=== PATIENT | female | born 1955 | race Caucasian/White ===

== ENCOUNTER 2024-12-20 10:58 | Day surgery (SDC) | payer MEDICARE, MEDICAID, SELFPAY ==
--- OUTSIDE RECORDS SUMMARY | 2024-12-18 12:35 | XMS_ITS | Clinical Summary ---
Author Organization [facility] Address [address] [place] [address] Care Team Providers Care Protective Officer Name Role Phone Unavailable Primary Care Provider Unavailabl e Social History Tobacco Use Types Packs/Day Years Used Date Smoking Tobacco: Never Assessed Comments Unknown Sex and Gender Information Value Date Recorded Sex Assigned at Not on file Legal Sex Female 11:56 PM EDT Gender Identity Not on file Sexual Orientation Not on file Plan of Treatment Health Maintenance Due Date Last Done Comments Hepatitis C Screening 1957 DTaP/Tdap/Td (1 - Tdap) 1975 Mammogram/Breast Imaging 1997 Pneumococcal 50+ years (1 of 1 - PCV) 2007 Zoster (Shingrix) (1 of 2) 2007 Bone Density 2022 COVID-19 Vaccine ( - 2023-2 5 season) 2024 Influenza (#1) 2024 RSV (1 - 1-dose 75+ series) 02/05/2032 HPV Vaccine Aged Out No longer eligi ble based on patient's age to complete this topic Hep A Aged Out No longer eligi ble based on patient's age to complete this topic Hep B Aged Out No longer eligi ble based on patient's age to complete this topic Hib Aged Out No longer eligi ble based on patient's age to complete this topic Meningococcal ACWY Aged Out No longer eligible based on patient's age to complete this topic Pap Smear Discontinued Zoster (Zostavax) Discontinued
--- OUTSIDE RECORDS SUMMARY | 2024-12-18 12:35 | XMS_ITS ---
Author Organization [facility] Address [address] [place] [address] Care Team Providers Care Nanoelectronics Engineer Name Role Phone Ric Teresa Primary Care Provider [phone] ALLERGIES Allergen (clinical drug ingredient) Drug/Non Drug Allergy documented on EMR Reaction Allergy Type Onset Date Status aspirin Aspirin Unknown Drug Allergy Active amoxicillin / clavulanate Augmentin Unknown Drug Allergy Active meperidine Demerol Unknown Drug Allergy Active doxycycline Doxycycline Hyclate Unknown Drug Allergy Active Fiorinal Unknown Drug Allergy Active guaiFENesin AC Unknown Drug Allergy Ac tive Levaquin Unknown Drug Allergy Active Sulfamethoxazole Unknown Drug Allergy Active trazodone Trazodone HCl Unknown Drug Allergy Act shelley sertraline Zoloft Unknown Drug Allergy Active REASON FOR REFERRAL Reason Consultation Diagnosis 1 Recurrent syncope (R 55) Referral Organization [facility] Referring Provider First Name Ric Referring Provider Last Name Brii Referring Provider Speciality Internal M edicine Referred Provider Specialty Neurology General Notes Romana Kwan 08/13/20 09:19:18 AM EDT > LMAM patient stated at checkout that she saw someone in the past, didn't know if she wanted to go to the same one or go somewhere else, Romana Kwan 08/14/2024 09:19:44 AM EDT > called and spoke with scheduling, they could not book for that diagnosis it told she kept getting an error that she should be refered to ENT first. She is sending over a message to the clinic to see if she can book and appt for that dx, she will call patient and let us know the status, Romana Kwan 08/23/2024 10:14:41 AM EDT > didnt hear back so I called and was told that there was no referral so I refaxed the information and verified the contact number for patient Clinical Notes [facility] neuro [facility]y [phone] f [phone] Referral Priority Routine Referral Appointment Date 04/08/2025 REASON FOR VISIT (IN OFFICE), Follow Up MEDICATIONS Medication SIG (Take, Route, Frequency, Duration) Notes Start Date End Date Status Glimepiride 2 MG TAKE 1 TABLET BY MAGUE TH EVERY DAY WITH BREAKFAST OR THE FIRST MAIN MEAL OF THE DAY Active rOPINIRole HCl 1 MG 1 tablet Orally Thre e times a day for 30 days Active Vancomycin HCl 1.25 GM as directed Intravenous Active metFORMIN HCl 500 MG 1 tablet with a bonnie l Orally Twice a day Active Metoprolol Succinate ER 25 MG 1 tablet Orally Once a day for 30 day(s) Active Varenicline Tartrate 1 MG 1 tablet after eating with a full glass of water Orally Twice a day for 30 days Active Vitamin D3 50 MCG (2000 UT) 1 capsule Or ally Once a day for 90 Days Active Levothyroxine Sodium 100 MCG 1 tablet in the morning on an empty stomach Orally Once a day Active Montelukast Sodium 10 MG TAKE 1 TABLET B Y MOUTH EVERY DAY Active Famotidine 40 MG TAKE 1 TABLET BY MAGUE TH EVERY DAY AT BEDTIME Active Cyclobenzaprine HCl 10 MG TAKE 1 TABLET BY MOUTH THREE TIMES DAILY NEEDED Active Pregabalin 150 MG TAKE 1 CAPSULE BY MO UTH TWICE DAILY Active Breztri Aerosphere 160-9-4.8 MCG/ACT INHALE 2 PUFFS BY MOUTH TWICE DAILY Active Rosuvastatin Calcium 10 MG TAKE 1 TABLET BY MOUTH EVERY DAY Active ProAir HFA 108 (90 Base) MCG/ACT 1 puff as needed Inhalation every 4 hrs Active Voltaren 1 % 5 g Transdermal Ever y 6 hours Active Fluticasone Propionate 50 MCG/ACT 1 spray in each nostril Nasally Once a day Active Mirtazapine 15 MG 1 tablet at bedtime Orally Once a day Active metFORMIN HCl 500 MG TAKE 1 AND 1/2 TABL ETS BY MOUTH TWICE DAILY WITH A MEAL for 90 Active Cymbalta 60 MG 1 capsule Orally Twi ce a day Active Montelukast Sodium 10 MG TAKE 1 TABLET B Y MOUTH EVERY DAY for 90 Active Famotidine 40 MG TAKE 1 TABLET BY MAGUE TH EVERY DAY AT BEDTIME for 90 Active rOPINIRole HCl 1 MG TAKE 1 TABLET BY MAGUE TH THREE TIMES DAILY for 90 Active Pregabalin 150 MG TAKE 1 CAPSULE BY MO UTH TWICE DAILY for 30 07/18/2024 Active Rosuvastatin Calcium 10 MG TAKE 1 TABLET BY MOUTH EVERY DAY for 90 Active Magnesium Oxide 400 MG 1 tablet as neede d Orally Twice a day for 90 Days Active Glimepiride 2 MG TAKE 1 TABLET BY MAGUE TH EVERY DAY WITH BREAKFAST OR THE FIRST MAIN MEAL OF THE DAY for 90 Active Levothyroxine Sodium 100 MCG TAKE 1 TABL ET BY MOUTH EVERY DAY IN THE MORNING ON AN EMPTY STOMACH for 90 Active Varenicline Tartrate 1 MG TAKE 1 TABLET BY MOUTH TWICE DAILY AFTER A MEAL WITH A FULL GLASS OF WATER for 90 Active Furosemide 20 MG TAKE 1 TABLET BY MAGUE TH TWICE DAILY for 90 Active Oxygen . 2 lpm . Daily Active Vitamin D3 50 MCG (1999 UT) TAKE 1 CAPSU LE BY MOUTH EVERY DAY for 90 Active Nystop 883260 UNIT/GM 1 application Exte rnally Twice a day for 30 days 06/11/2024 Active Sucralfate 1 GM/10ML SHAKE LIQUID AND TA KE 10 ML BY MOUTH FOUR TIMES DAILY ON AN EMPTY STOMACH Orally four times a day for 30 days Active Ondansetron 4 MG 1 tablet on the tong ue and allow to dissolve Orally every 8 hours as needed for 5 days 09/30/2022 Active OneTouch Verio w/Device as directed In V itro Once a day for 30 days 11/29/2021 Active OneTouch Delica Lancets 33G - as directed In Vitro Once a day for 30 days 11/29/2021 Active Venofer 20 MG/ML 50 mL Intravenous 1- 2 times per week 09/16/2021 Active OneTouch Verio - USE ONCE DAILY DIRECTED for 50 Active SOCIAL HISTORY Tobacco Use: Social History Observation Description Date Details (start date - stop date) Former Smoker NA - NA Sex Assigned At : Social History Observation Description Sex Assigned At Unknown Tobacco Use/Smoking Question Answer Notes Are you a former smoker How long has it been since you last smoked? 3-6 months Alcohol Screen Question Answer Notes Did you have a drink containing alcohol in the p ast year? No Points 0 Interpretation Negative VITAL SIGNS Height 68 in 08/12/2024 Weight 140.8 lbs 08/12/2024 BMI 21.41 kg/m2 08/12/2024 Blood pressure systolic 120 mm Hg 08/12/20 24 Blood pressure diastolic 80 mm Hg 024 Heart Rate 80 /min 08/12/2024 Encounters Encounter Location Date [facility] [address] [place] [address] 08/12/2024 Ric Teresa Essential tremor G25 .0 ; Recurrent syncope R55 ; Type 2 diabetes mellitus with diabetic neuropathy, unspecified whether residential insulin use E11.40 ; Neuropathy G62.9 ; Recurrent major depressive disorder, in full remission F33.42 ; Acquired hypothyroidism E03.9 ; Acute combined systolic and diastolic congestive heart failure I50.41 ; Chronic obstructive pulmonary disease, unspecified COPD type J44.9 ; Gastroesophageal reflux disease without esophagitis K21.9 ; Mixed hyperlipidemia E78.2 ; Hypomagnesemia E83.42 ; Osteoarthritis of spine with radiculopathy, lumbar region M47.26 ; Non-seasonal allergic rhinitis, unspecified trigger J30.89 ; Vitamin D deficiency E55.9 and Tobacco abuse Z72.0 ASSESSMENTS Encounter Date Diagnosis Assessment Notes Treatment Notes Treatment Clinical Notes 08/12/2024 Essential tremor (ICD-10 - G25.0) 08/12/2024 Recurrent syncope (ICD-10 - R55) 08/12/2024 Type 2 diabetes mellitus with diabetic neuropathy, unspecified whether vermin exterminator insulin use (ICD-10 - E11.40) 08/12/2024 Neuropathy (ICD-10 - G62.9) 08/12/2024 Recurrent major depressive disorder, in full remission (ICD-10 - F33.42) 08/12/2024 Acquired hypothyroidism (ICD-10 - E03.9) 08/12/2024 Acute combined systolic and diastolic congestive heart failure (ICD-10 - I50.41) 08/12/2024 Chronic obstructive pulmonary disease, unspecified COPD type (ICD-10 - J44.9) 08/12/2024 Gastroesophageal reflux disease without esophagitis (ICD-10 - K21.9) 08/12/2024 Mixed hyperlipidemia (ICD-10 - E78.2) 08/12/2024 Hypomagnesemia (ICD- 10 - E83.42) 08/12/2024 Osteoarthritis of spine with radiculopathy, lumbar region (ICD-10 - M47.26) 08/12/2024 Non-seasonal allergi c rhinitis, unspecified trigger (ICD-10 - J30.89) 08/12/2024 Vitamin D deficiency (ICD-10 - E55.9) 08/12/2024 Tobacco abuse (ICD-1 0 - Z72.0) 08/12/2024 Other This chart has been transcribed by a computerized dictation system. There are likely to be multiple horn player inaccuracies despite chart review. PLAN OF TREATMENT Medication Medication Name Sig Start Date Stop Date Notes Glimepiride 2 MG TAKE 1 TABLET BY MAGUE TH EVERY DAY WITH BREAKFAST OR THE FIRST MAIN MEAL OF THE DAY rOPINIRole HCl 1 MG 1 tablet Orally Thre e times a day for 30 days Vancomycin HCl 1.25 GM as directed Intravenous metFORMIN HCl 500 MG 1 tablet with a bonnie l Orally Twice a day Varenicline Tartrate 1 MG 1 tablet after eating with a full glass of water Orally Twice a day for 30 days Vitamin D3 50 MCG (2000 UT) 1 capsule Or ally Once a day for 90 Days Levothyroxine Sodium 100 MCG 1 tablet in the morning on an empty stomach Orally Once a day Montelukast Sodium 10 MG TAKE 1 TABLET B Y MOUTH EVERY DAY Famotidine 40 MG TAKE 1 TABLET BY MAGUE TH EVERY DAY AT BEDTIME Cyclobenzaprine HCl 10 MG TAKE 1 TABLET BY MOUTH THREE TIMES DAILY NEEDED Pregabalin 150 MG TAKE 1 CAPSULE BY MO UTH TWICE DAILY Breztri Aerosphere 160-9-4.8 MCG/ACT INHALE 2 PUFFS BY MOUTH TWICE DAILY Rosuvastatin Calcium 10 MG TAKE 1 TABLET BY MOUTH EVERY DAY ProAir HFA 108 (90 Base) MCG/ACT 1 puff as needed Inhalation every 4 hrs Voltaren 1 % 5 g Transdermal Ever y 6 hours Fluticasone Propionate 50 MCG/ACT 1 spray in each nostril Nasally Once a day Mirtazapine 15 MG 1 tablet at bedtime Orally Once a day Cymbalta 60 MG 1 capsule Orally Twi ce a day Magnesium Oxide 400 MG 1 tablet as neede d Orally Twice a day for 90 Days Treatment Notes Assessment Notes Other This chart has been transcribed by a computerized dictation system. There are likely to be multiple horn player inaccuracies despite chart review. Pending Test Test Name Order Date 08/12/2024 Hemoglobin [id number] 08/12/2024 [id number] 08/12/2024 Referrals Referral Date Details 04/08/2025 04/08/2025, Consulta mesha Next Appt Details Follow Up: 3 Months, Reason: Follow-up Provider Name:Ric castano, 02/11/2025 11:00:00 AM, [address] [place] [address], [phone], Consultation Request Notes Referral Date Referring Provider Referred Provider Not es 08/12/2024 Ric Teresa , Consultation
--- OUTSIDE RECORDS SUMMARY | 2024-12-18 12:35 | XMS_ITS ---
Author Organization [facility] Address [address] [place] [phone] Care Team Providers Care Toll Collector Name Role Phone Brii LAY, Ric Primary Care Provider Lance Almonte Jr Unavailable ALLERGIES Allergen (clinical drug ingredient) Drug/Non Drug Allergy documented on EMR Reaction Allergy Type Onset Date Status Levaquin Unknown Drug Allergy Active Fiorinal Unknown Drug Allergy Active meperidine Demerol Unknown Drug Allergy Active amoxicillin / clavulanate Augmentin Unknown Drug Allergy Active bacitracin Antibiotic Unknown Drug Allergy Activ e trazodone traZODone Unknown Drug Allergy Active doxycycline Doxycycline Unknown Drug Allergy Act shelley sulfamethoxazole Sulfamethoxazole Unknown Drug Allergy Active guaifenesin guaiFENesin Unknown Drug Allergy Act shelley aspirin Aspirin Unknown Drug Allergy Active sertraline Zoloft Unknown Drug Allergy Active REASON FOR VISIT upper GI series MEDICATIONS Medication SIG (Take, Route, Frequency, Duration) Notes Start Date End Date Status Metoprolol Succinate ER 25 MG Oral for 90 Active Vitamin D3 50 MCG (1999) TAKE 1 CAPSU LE BY MOUTH EVERY DAY Oral for 90 Active Famotidine 40 MG Oral for 90 A ctive Mirtazapine 15 MG TAKE 1 TABLET BY MAGUE TH DAILY AT BEDTIME Oral for 30 Active Zolpidem Tartrate 5 MG TAKE 1 TABLET BY MOUTH DAILY AT BEDTIME NEEDED FOR SLEEP Oral for 30 Active Montelukast Sodium 10 MG Oral for 90 Active Levothyroxine Sodium 100 MCG Oral for 90 Active Glimepiride 2 MG Oral for 90 A ctive Furosemide 20 MG TAKE 1 TABLET BY MAGUE TH TWICE DAILY Oral for 90 Active Varenicline Tartrate 1 MG Oral for 90 Active metFORMIN HCl 500 MG Oral for 90 Active DULoxetine HCl 60 MG Oral for 90 Active hydrOXYzine Pamoate 25 MG Oral for 30 Active rOPINIRole HCl 1 MG TAKE 1 TABLET BY MAGUE TH THREE TIMES DAILY Oral for 90 Active clonazePAM 2 MG Oral for 30 Ac tive Cyclobenzaprine HCl 10 MG TAKE 1 TABLET BY MOUTH THREE TIMES DAILY NEEDED Oral for 10 Active Magnesium Oxide -Mg Supplement 400 (240 Mg) MG TAKE 1 TABLET BY MOUTH TWICE DAILY NEEDED Oral for 90 Active Rosuvastatin Calcium 10 MG Oral for 90 Active Pregabalin 150 MG TAKE 1 CAPSULE BY MO UTH TWICE DAILY Oral for 30 Active Ventolin HFA 108 (90 Base) MCG/ACT INHALE 1 PUFF BY MOUTH EVERY 4 HOURS NEEDED Inhalation for 33 Active PROBLEMS Problem Type ICD Code Onset Dates Problem Status W/U Status Risk SNOMED Code Notes Problem Abnormal UGI series (R93.3) Active confirmed 065983677 Encounters Encounter Location Date Provider Diagnosis [facility] [address] [place] [phone] 12/11/2024 Lance Shields Jr Abnormal UGI series R93.3 ASSESSMENTS Encounter Date Diagnosis Assessment Notes Treatment Notes Treatment Clinical Notes 12/11/2024 Abnormal UGI series (ICD-10 - R93.3) PLAN OF TREATMENT Future Test Test Name Order Date UPPER GI ENDOSCOPY BALLOOON DILATION OF ESOPH 12/11/2024 Next Appt Details Provider Name:Lance rose Jr, 12/20/2024 01:10:00 PM, [address] [place] [address] , [place], [place], [phone],
--- OUTSIDE RECORDS SUMMARY | 2024-12-18 12:35 | XMS_ITS | Patient Health Record ---
Author Organization [facility] Address [address] [place] [phone] Care Team Providers Care Machine Shop Supervisor Name Role Phone Ric Teresa MD Primary Care Provider Lance Almonte Jr Unavailable REASON FOR REFERRAL No Information MEDICATIONS Medication SIG (Take, Route, Frequency, Duration) Notes Start Date End Date Status Metoprolol Succinate ER 25 MG Oral for 90 Active Vitamin D3 50 MCG (1999) TAKE 1 CAPSU LE BY MOUTH EVERY DAY Oral for 90 Active Montelukast Sodium 10 MG Oral for 90 Active Famotidine 40 MG Oral for 90 A ctive Levothyroxine Sodium 100 MCG Oral for 90 Active Glimepiride 2 MG Oral for 90 A ctive Furosemide 20 MG TAKE 1 TABLET BY MAGUE TH TWICE DAILY Oral for 90 Active Magnesium Oxide -Mg Supplement 400 (240 Mg) MG TAKE 1 TABLET BY MOUTH TWICE DAILY NEEDED Oral for 90 Active Varenicline Tartrate 1 MG Oral for 90 Active Mirtazapine 15 MG TAKE 1 TABLET BY MAGUE TH DAILY AT BEDTIME Oral for 30 Active Zolpidem Tartrate 5 MG TAKE 1 TABLET BY MOUTH DAILY AT BEDTIME NEEDED FOR SLEEP Oral for 30 Active Cyclobenzaprine HCl 10 MG TAKE 1 TABLET BY MOUTH THREE TIMES DAILY NEEDED Oral for 10 Active metFORMIN HCl 500 MG Oral for 90 Active DULoxetine HCl 60 MG Oral for 90 Active hydrOXYzine Pamoate 25 MG Oral for 30 Active rOPINIRole HCl 1 MG TAKE 1 TABLET BY MAGUE TH THREE TIMES DAILY Oral for 90 Active Rosuvastatin Calcium 10 MG Oral for 90 Active clonazePAM 2 MG Oral for 30 Ac tive Pregabalin 150 MG TAKE 1 CAPSULE BY MO UTH TWICE DAILY Oral for 30 Active Ventolin HFA 108 (90 Base) MCG/ACT INHALE 1 PUFF BY MOUTH EVERY 4 HOURS NEEDED Inhalation for 33 Active IMMUNIZATIONS Vaccine Route Administration Date Status Comme nts Influenza Unknown 07/16/2024 Administered SOCIAL HISTORY Tobacco Use: Social History Observation Description Date Details (start date - stop date) Former Smoker NA - NA Sex Assigned At : Social History Observation Description Sex Assigned At Unknown Tobacco Use/Smoking Question Answer Notes Patient is a former smoker Alcohol Screen Question Answer Notes Did you have a drink contain ing alcohol in the past year? Yes How often did you have a dri nk containing alcohol in the past year? Monthly or less (1 point) How many drinks did you have on a typical day when you were drinking in the past year? 1 or 2 drinks (0 point) How often did you have 6 or more drinks on one occasion in the past year? Never (0 point) Points 1 Interpretation Negative PROBLEMS Problem Type ICD Code Onset Dates Problem Status W/U Status Risk SNOMED Code Notes Problem Other dysphagia (R13.19) Active confirmed [id number] Problem Abnormal UGI series (R93.3) Active confirmed 227434808 Problem Gastroesophageal reflux disease, unspecified whether esophagitis present (K21.9) Active confirmed [id number] VITAL SIGNS Temperature 97.8 degrees Fahrenheit 12/02/2024 Blood pressure diastolic 00 mm Hg 12/02/2024 Height 5 ft 8 in in 12/02/2024 Blood pressure systolic 000 mm Hg 12/02/2024 Weight 145 lbs 12/02/2024 BMI 22.04 kg/m2 12/02/2024 Encounters Encounter Location Date Provider Diagnosis [facility] [address] [place] [phone] 12/02/2024 Lance Shields Jr Other dysphagia R13.19 and Gastroesophageal reflux disease, unspecified whether esophagitis present K21.9 [facility] [address] [place] [phone] 12/11/2024 Lance Shields Jr Abnormal UGI series R93.3 ASSESSMENTS Encounter Date Diagnosis Assessment Notes Treatment Notes Treatment Clinical Notes 12/02/2024 Other dysphagia (ICD-10 - R13.19) 12/02/2024 Gastroesophageal reflux disease, unspecified whether esophagitis present (ICD-10 - K21.9) Gastroesophageal reflux disease material was printed 12/11/2024 Abnormal UGI series (ICD-10 - R93.3) PLAN OF TREATMENT Pending Test Test Name Order Date XR GI SERIES 12/02/2024 Future Test Test Name Order Date UPPER GI ENDOSCOPY BALLOOON DILATION OF ESOPH 12/11/2024 Next Appt Details Provider Name:Lance Rosamaria rose Jr, 12/20/2024 01:10:00 PM, [address] [place] [address] , [place], [place], [phone], Insurance Providers Payer Name Payer Address Payer Phone Subscriber Number Group Number Insured Name Patient Relationship to Insured Coverage Start Date Coverage End Date MEDICARE OF [place] [address] [place]GHES [id number] [phone] [id number] SAMPSON MCDONALD Self - patient is the insured MEDICAID OF [facility] [address] [place] [phone] [id number] SAMPSON MCDONALD Self - patient is the insured MEDICAL (GENERAL) HISTORY Medical History History ICD Code Hyperlipidemia Diabetes mellitus type 2 with neuropathy Ulcerative colitis with total colectomy and ileostomy Osteoarthritis Anxiety/depression Hypothyroidism Surgical History Surgery Date(Month/Year) Foot surgery/partial toe amputation Hiatal hernia repair 08/20 Colectomy/ileostomy Right shoulder surgery
--- OUTSIDE RECORDS SUMMARY | 2024-12-18 12:35 | XMS_ITS ---
Author Organization [facility] Address [address] [place] [phone] Care Team Providers Care Senior Php Software Developer Name Role Phone Brii LAY, Ric Primary Care Provider Lance Almonte Jr REASON FOR VISIT Patient presents today for an esophageal stricture MEDICATIONS Medication SIG (Take, Route, Frequency, Duration) Notes Start Date End Date Status Levothyroxine Sodium 100 MCG Oral for 90 Active Varenicline Tartrate 1 MG Oral for 90 Active Furosemide 20 MG TAKE 1 TABLET BY MAGUE TH TWICE DAILY Oral for 90 Active Montelukast Sodium 10 MG Oral for 90 Active Glimepiride 2 MG Oral for 90 A ctive DULoxetine HCl 60 MG Oral for 90 Active clonazePAM 2 MG Oral for 30 Ac tive metFORMIN HCl 500 MG Oral for 90 Active rOPINIRole HCl 1 MG TAKE 1 TABLET BY MAGUE TH THREE TIMES DAILY Oral for 90 Active hydrOXYzine Pamoate 25 MG Oral for 30 Active Cyclobenzaprine HCl 10 MG TAKE 1 TABLET BY MOUTH THREE TIMES DAILY NEEDED Oral for 10 Active Magnesium Oxide -Mg Supplement 400 (240 Mg) MG TAKE 1 TABLET BY MOUTH TWICE DAILY NEEDED Oral for 90 Active Rosuvastatin Calcium 10 MG Oral for 90 Active Ventolin HFA 108 (90 Base) MCG/ACT INHALE 1 PUFF BY MOUTH EVERY 4 HOURS NEEDED Inhalation for 33 Active Pregabalin 150 MG TAKE 1 CAPSULE BY MO UTH TWICE DAILY Oral for 30 Active Metoprolol Succinate ER 25 MG Oral for 90 Active Famotidine 40 MG Oral for 90 A ctive Mirtazapine 15 MG TAKE 1 TABLET BY MAGUE TH DAILY AT BEDTIME Oral for 30 Active Vitamin D3 50 MCG (1999) TAKE 1 CAPSU LE BY MOUTH EVERY DAY Oral for 90 Active Zolpidem Tartrate 5 MG TAKE 1 TABLET BY MOUTH DAILY AT BEDTIME NEEDED FOR SLEEP Oral for 30 Active SOCIAL HISTORY Tobacco Use: Social History [...] Notes Problem Other dysphagia (R13.19) Active confirmed 90895397 Problem Gastroesophageal reflux disease, unspecified whether esophagitis present (K21.9) Active confirmed 185407468 VITAL SIGNS BMI 22.04 kg/m2 12/02/2024 Blood pressure systolic 000 mm Hg 12/02/19 25 Blood pressure diastolic 00 mm Hg 025 Height 5 ft 8 in in 12/02/2024 Temperature 97.8 degrees Fahrenheit 12/02/19 25 Weight 145 lbs 12/02/2024 Encounters Encounter Location Date Provider Diagnosis [facility] [address] [facility] [address] [place] [phone] 12/02/2024 Lance Shields Jr Other dysphagia R13.19 and Gastroesophageal reflux disease, unspecified whether esophagitis present K21.9 ASSESSMENTS Encounter Date Diagnosis Assessment Notes Treatment Notes Treatment Clinical Notes 12/02/2024 Other dysphagia (ICD-10 - R13.19) 12/02/2024 Gastroesophageal reflux disease, unspecified whether esophagitis present (ICD-10 - K21.9) Gastroesophageal reflux disease material was printed PLAN OF TREATMENT Treatment Notes Assessment Notes Gastroesophageal reflux dise ase, unspecified whether esophagitis present Gastroesophageal reflux disease material was printed Pending Test Test Name Order Date XR GI SERIES 12/02/2024 Next Appt Details Follow Up: 1 Year, Reason: Provider Name:Lance rose Jr, 12/20/2024 01:10:00 PM, [address] [place] [address] , [place], [place], [phone], Progress Notes * Examination Category Sub-Category Detail Notes General Examination GENERAL APPEARANCE: in no ac igiugig distress HEAD: normocephalic EYES: sclera non-icteric NECK/THYROID: no lymphadenopathy HEART: S1, S2 normal, no mu rmurs CHEST: normal shape and exp ansion LUNGS: clear to auscultatio n bilaterally ABDOMEN: soft, nontender, non distended, bowel sounds present, no organomegaly, intact ileostomy. SKIN: anicteric EXTREMITIES: no clubbing, cyanosi s, or edema PSYCH: cognitive function i ntact ORAL CAVITY: mucosa moist
--- OUTSIDE RECORDS SUMMARY | 2024-12-18 12:36 | XMS_ITS ---
Author Organization [facility]i Rogers Address [address] [place] [address] Care Team Providers Care Design Engineering Manager Name Role Phone Ric Teresa Primary Care Provider [phone] ALLERGIES Allergen (clinical drug ingredient) Drug/Non Drug [...] Unknown Drug Allergy Active REASON FOR VISIT (IN OFFICE), Sick Visit MEDICATIONS Medication SIG (Take, Route, Frequency, Duration) Notes Start Date End Date Status rOPINIRole HCl 1 MG TAKE 1 TABLET BY [facility] THREE TIMES DAILY for 90 Active Pregabalin 150 MG TAKE 1 CAPSULE BY [facility] TWICE DAILY for 30 11/14/2024 Active Fluticasone Propionate 50 MCG/ACT 1 spray in each nostril Nasally Once a day Active Mirtazapine 15 MG 1 tablet at bedtime Orally Once a day Active Voltaren 1 % 5 g Transdermal Ever y 6 hours Active Rosuvastatin Calcium 10 MG TAKE 1 TABLET BY MOUTH EVERY DAY for 90 Active Cymbalta 60 MG 1 capsule Orally Twi ce a day Active Varenicline Tartrate 1 MG TAKE 1 TABLET BY MOUTH TWICE DAILY AFTER A MEAL WITH A FULL GLASS OF WATER for 90 Active Levothyroxine Sodium 100 MCG TAKE 1 TABL ET BY MOUTH EVERY DAY IN THE MORNING ON AN EMPTY STOMACH for 90 Active Furosemide 20 MG TAKE 1 TABLET BY [facility]UE TH TWICE DAILY for 90 Active Sucralfate 1 GM/10ML SHAKE LIQUID AND TA KE 10 ML BY MOUTH FOUR TIMES DAILY ON AN EMPTY STOMACH Orally four times a day for 30 days Active Vitamin D3 50 MCG (1999 UT) TAKE 1 CAPSU LE BY MOUTH EVERY DAY for 90 Active Nystop 343838 UNIT/GM 1 application Exte rnally Twice a day for 30 days 06/11/2024 Active Glimepiride 2 MG TAKE 1 TABLET BY [facility]UE TH EVERY DAY WITH BREAKFAST OR THE FIRST MAIN MEAL OF THE DAY for 90 Active Famotidine 40 MG TAKE 1 TABLET BY MAGUE TH EVERY DAY AT BEDTIME for 90 Active OneTouch Verio w/Device as directed In V itro Once a day for 30 days 11/29/2021 Active Oxygen . 2 lpm . Daily Active Magnesium Oxide 400 MG 1 tablet as neede d Orally Twice a day for 90 Days Active Metoprolol Succinate ER 25 MG 1 tablet Orally Once a day for 30 day(s) Active Vancomycin HCl 1.25 GM as directed Intravenous Active rOPINIRole HCl 1 MG 1 tablet Orally Thre e times a day for 30 days Active Varenicline Tartrate 1 MG 1 tablet after eating with a full glass of water Orally Twice a day for 30 days Active Vitamin D3 50 MCG (1999 UT) 1 capsule Or ally Once a day for 90 Days Active metFORMIN HCl 500 MG 1 tablet with a bonnie l Orally Twice a day Active Glimepiride 2 MG TAKE 1 TABLET BY MAGUE TH EVERY DAY WITH BREAKFAST OR THE FIRST MAIN MEAL OF THE DAY Active Breztri Aerosphere 160-9-4.8 MCG/ACT INHALE 2 PUFFS BY MOUTH TWICE DAILY Active Famotidine 40 MG TAKE 1 TABLET BY MAGUE TH EVERY DAY AT BEDTIME Active ProAir HFA 108 (90 Base) MCG/ACT 1 puff as needed Inhalation every 4 hrs Active Levothyroxine Sodium 100 MCG 1 tablet in the morning on an empty stomach Orally Once a day Active Montelukast Sodium 10 MG TAKE 1 TABLET B Y MOUTH EVERY DAY Active Pregabalin 150 MG TAKE 1 CAPSULE BY MO UTH TWICE DAILY Active Rosuvastatin Calcium 10 MG TAKE 1 TABLET BY MOUTH EVERY DAY Active Cyclobenzaprine HCl 10 MG TAKE 1 TABLET BY MOUTH THREE TIMES DAILY NEEDED Active SOCIAL HISTORY Tobacco Use: Social History Observation Description Date Details (start date - stop date) Former Smoker NA - NA Sex Assigned At : Social History Observation Description Sex Assigned At Unknown Tobacco Use/Smoking Question Answer Notes Are you a former smoker How long has it been since you last smoked? 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 ; Neuropathy G62.9 ; [...] Assessment Notes Treatment Notes Treatment Clinical Notes 11/28/2024 Esophageal stricture (ICD-10 - K22.2) 11/28/2024 Pain, joint, shoulde r, left (ICD-10 - M25.512) 11/28/2024 Essential tremor (ICD-10 - G25.0) 11/28/2024 Type 2 diabetes mellitus with diabetic neuropathy, unspecified whether prison insulin use (ICD-10 - E11.40) 11/28/2024 Neuropathy (ICD-10 - G62.9) 11/28/2024 Recurrent major depressive disorder, in full remission (ICD-10 - F33.42) 11/28/2024 Acquired hypothyroidism (ICD-10 - E03.9) 11/28/2024 Acute combined systolic and diastolic congestive heart failure (ICD-10 - I50.41) 11/28/2024 Chronic obstructive pulmonary disease, unspecified COPD type (ICD-10 - J44.9) 11/28/2024 Gastroesophageal reflux disease without esophagitis (ICD-10 - K21.9) 11/28/2024 Mixed hyperlipidemia (ICD-10 - E78.2) 11/28/2024 Hypomagnesemia (ICD- 10 - E83.42) 11/28/2024 Osteoarthritis of spine with radiculopathy, lumbar region (ICD-10 - M47.26) 11/28/2024 Non-seasonal allergi c rhinitis, unspecified trigger (ICD-10 - J30.89) 11/28/2024 Vitamin D deficiency (ICD-10 - E55.9) 11/28/2024 Tobacco abuse (ICD-1 0 - Z72.0) 11/28/2024 Other This chart has been transcribed by a computerized dictation system. There are likely to be multiple slurry blender inaccuracies despite chart review. PLAN OF TREATMENT Medication Medication Name Sig Start Date Stop Date Notes Fluticasone Propionate 50 MCG/ACT 1 spray in each nostril Nasally Once a day Mirtazapine 15 MG 1 tablet at bedtime Orally Once a day Voltaren 1 % 5 g Transdermal Ever y 6 hours Cymbalta 60 MG 1 capsule Orally Twi ce a day Magnesium Oxide 400 MG 1 tablet as neede d Orally Twice a day for 90 Days rOPINIRole HCl 1 MG 1 tablet Orally Thre e times a day for 30 days Varenicline Tartrate 1 MG 1 tablet after eating with a full glass of water Orally Twice a day for 30 days Vitamin D3 50 MCG (2000 UT) 1 capsule Or ally Once a day for 90 Days metFORMIN HCl 500 MG 1 tablet with a bonnie l Orally Twice a day Glimepiride 2 MG TAKE 1 TABLET BY [facility] TH EVERY DAY WITH BREAKFAST OR THE FIRST MAIN MEAL OF THE DAY Breztri Aerosphere 160-9-4.8 MCG/ACT INHALE 2 PUFFS BY MOUTH TWICE DAILY Famotidine 40 MG TAKE 1 TABLET BY [facility] TH EVERY DAY AT BEDTIME ProAir HFA 108 (90 Base) MCG/ACT 1 puff as needed Inhalation every 4 hrs Levothyroxine Sodium 100 MCG 1 tablet in the morning on an empty stomach Orally Once a day Montelukast Sodium 10 MG TAKE 1 TABLET B Y MOUTH EVERY DAY Pregabalin 150 MG TAKE 1 CAPSULE BY MO UT TWICE DAILY Rosuvastatin Calcium 10 MG TAKE 1 TABLET BY MOUTH EVERY DAY Cyclobenzaprine HCl 10 MG TAKE 1 TABLET BY MOUTH THREE TIMES DAILY NEEDED Treatment Notes Assessment Notes Other This chart has been transcribed by a computerized dictation system. There are likely to be multiple slurry blender inaccuracies despite chart review. Pending Test Test Name Order Date X ray : Shoulder, left 11/28/2024 Next Appt Details Follow Up: After the test, Modesta gill: Provider Name:Ric Nguyen eyad, 02/11/2025 11:00:00 AM, [address] [place] [address], [phone], Progress Notes * Examination Category Sub-Category Detail Notes General Examination GENERAL APPEARANCE: in no ac [place] distress, well developed, well nourished HEAD: normocephalic, atrau matic EYES: pupils equal, round, reactive to light and accommodation THROAT: clear, no erythema, uvula midline, no exudate NECK/THYROID: neck supple, no thyr omegaly, trachea midline, no carotid bruit HEART: no murmurs, regular rate and rhythm, S1, S2 normal LUNGS: clear to auscultatio n bilaterally ABDOMEN: soft, nontender, non distended, no organomegaly , bowel sounds present NEUROLOGIC: alert and oriented x 3, nonfocal SKIN: no suspicious lesion s, warm and dry EXTREMITIES: no clubbing, cyanosi s, or edema PERIPHERAL PULSES: normal, 2+ throughou t MUSCULOSKELETAL: Palpation of left sh oulder local temperature normal, no effusion, no point tenderness, abduction and extension limited and increases the pain LYMPH NODES: no cervical, axillar y, supraclavicular or inguinal adenopathy PSYCH: cognitive function i ntact, mood/affect full range ORAL CAVITY: mucosa moist, no les ions, palate normal, tongue in midline, well papillated PODIATRIC: Redness increased te mperature dorsal aspect of right foot
--- OUTSIDE RECORDS SUMMARY | 2024-12-18 12:36 | XMS_ITS ---
Author Organization [facility] Address [address] [place] [address] Care Team Providers Care Building Construction Professor Name Role Phone Ric Teresa Primary Care Provider ALLERGIES Allergen (clinical drug ingredient) Drug/Non Drug [...] Allergy Active REASON FOR REFERRAL Reason Consultation and eso phageal dilatation Diagnosis 1 Esophageal stricture (K22.2) Referral Organization Ric Teresa Md Referring Provider First Name Ric Referring Provider Last Name Brii Referring Provider Speciality Internal M edicine Referred Provider Specialty Gastroentero logy General Notes Romana Kwan 11/25/19 25 03:35:46 PM EST > faxed to Dr Shields Clinical Notes Dr Shields p: f: [phone] Referral Priority Routine Referral Appointment Date 12/02/2024 REASON FOR VISIT (IN OFFICE), Follow Up MEDICATIONS Medication SIG (Take, Route, Frequency, Duration) Notes Start Date End Date Status Furosemide 20 MG TAKE 1 TABLET BY [facility] TH TWICE DAILY for 90 Active rOPINIRole HCl 1 MG TAKE 1 TABLET BY [facility] TH THREE TIMES DAILY for 90 Active metFORMIN HCl 500 MG TAKE 1 AND 1/2 TABL ETS BY MOUTH TWICE DAILY WITH A MEAL for 90 Active Rosuvastatin Calcium 10 MG TAKE 1 TABLET BY MOUTH EVERY DAY for 90 Active Pregabalin 150 MG TAKE 1 CAPSULE BY MO U[facility] TWICE DAILY for 30 10/06/2024 Active Glimepiride 2 MG TAKE 1 TABLET BY [facility] TH EVERY DAY WITH BREAKFAST OR THE FIRST MAIN MEAL OF THE DAY for 90 Active Magnesium Oxide 400 MG 1 tablet as neede d Orally Twice a day for 90 Days Active Varenicline Tartrate 1 MG TAKE 1 TABLET BY MOUTH TWICE DAILY AFTER A MEAL WITH A FULL GLASS OF WATER for 90 Active Montelukast Sodium 10 MG TAKE 1 TABLET B Y MOUTH EVERY DAY for 90 Active Levothyroxine Sodium 100 MCG TAKE 1 TABL ET BY MOUTH EVERY DAY IN THE MORNING ON AN EMPTY STOMACH for 90 Active Famotidine 40 MG TAKE 1 TABLET BY MAGUE TH EVERY DAY AT BEDTIME for 90 Active Vitamin D3 50 MCG (1999 UT) TAKE 1 CAPSU LE BY MOUTH EVERY DAY for 90 Active rOPINIRole HCl 1 MG 1 tablet Orally Thre e times a day for 30 days Active metFORMIN HCl 500 MG 1 tablet with a bonnie l Orally Twice a day Active Glimepiride 2 MG TAKE 1 TABLET BY MAGUE TH EVERY DAY WITH BREAKFAST OR THE FIRST MAIN MEAL OF THE DAY Active Nystop 341238 UNIT/GM 1 application Exte rnally Twice a day for 30 days 06/11/2024 Active Sucralfate 1 GM/10ML SHAKE LIQUID AND TA KE 10 ML BY MOUTH FOUR TIMES DAILY ON AN EMPTY STOMACH Orally four times a day for 30 days Active Oxygen . 2 lpm . Daily Active Varenicline Tartrate 1 MG 1 tablet after eating with a full glass of water Orally Twice a day for 30 days Active Vitamin D3 50 MCG (1999 UT) 1 capsule Or ally Once a day for 90 Days Active OneTouch Verio w/Device as directed In V itro Once a day for 30 days 11/29/2021 Active Famotidine 40 MG TAKE 1 TABLET BY MAGUE TH EVERY DAY AT BEDTIME Active Metoprolol Succinate ER 25 MG 1 tablet Orally Once a day for 30 day(s) Active Levothyroxine Sodium 100 MCG 1 tablet in the morning on an empty stomach Orally Once a day Active Montelukast Sodium 10 MG TAKE 1 TABLET B Y MOUTH EVERY DAY Active ProAir HFA 108 (90 Base) MCG/ACT 1 puff as needed Inhalation every 4 hrs Active Breztri Aerosphere 160-9-4.8 MCG/ACT INHALE 2 PUFFS BY MOUTH TWICE DAILY Active Vancomycin HCl 1.25 GM as directed Intravenous Active Rosuvastatin Calcium 10 MG TAKE 1 TABLET BY MOUTH EVERY DAY Active Pregabalin 150 MG TAKE 1 CAPSULE BY MO UT TWICE DAILY Active Fluticasone Propionate 50 MCG/ACT 1 spray in each nostril Nasally Once a day Active Mirtazapine 15 MG 1 tablet at bedtime Orally Once a day Active Cymbalta 60 MG 1 capsule Orally Twi ce a day Active Cyclobenzaprine HCl 10 MG TAKE 1 TABLET BY MOUTH THREE TIMES DAILY NEEDED Active Voltaren 1 % 5 g Transdermal Ever y 6 hours Active SOCIAL HISTORY Tobacco Use: Social History Observation Description Date Details (start date - stop date) Former Smoker NA - NA Sex Assigned At : Social History Observation Description Sex Assigned At Unknown Tobacco Use/Smoking Question Answer Notes Are you a former smoker How long has it been since you last smoked? 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 ; Neuropathy G62.9 ; [...] Assessment Notes Treatment Notes Treatment Clinical Notes 11/12/2024 Essential tremor (ICD-10 - G25.0) 11/12/2024 Esophageal stricture (ICD-10 - K22.2) 11/12/2024 Type 2 diabetes mellitus with diabetic neuropathy, unspecified whether fpc insulin use (ICD-10 - E11.40) 11/12/2024 Neuropathy (ICD-10 - G62.9) 11/12/2024 Recurrent major depressive disorder, in full remission (ICD-10 - F33.42) 11/12/2024 Acquired hypothyroidism (ICD-10 - E03.9) 11/12/2024 Acute combined systolic and diastolic congestive heart failure (ICD-10 - I50.41) 11/12/2024 Chronic obstructive pulmonary disease, unspecified COPD type (ICD-10 - J44.9) 11/12/2024 Gastroesophageal reflux disease without esophagitis (ICD-10 - K21.9) 11/12/2024 Mixed hyperlipidemia (ICD-10 - E78.2) 11/12/2024 Hypomagnesemia (ICD- 10 - E83.42) 11/12/2024 Osteoarthritis of spine with radiculopathy, lumbar region (ICD-10 - M47.26) 11/12/2024 Non-seasonal allergi c rhinitis, unspecified trigger (ICD-10 - J30.89) 11/12/2024 Vitamin D deficiency (ICD-10 - E55.9) 11/12/2024 Tobacco abuse (ICD-1 0 - Z72.0) 11/12/2024 Other This chart has been transcribed by a computerized dictation system. There are likely to be multiple heater helper inaccuracies despite chart review. PLAN OF TREATMENT Medication Medication Name Sig Start Date Stop Date Notes Magnesium Oxide 400 MG 1 tablet as neede d Orally Twice a day for 90 Days rOPINIRole HCl 1 MG 1 tablet Orally Thre e times a day for 30 days metFORMIN HCl 500 MG 1 tablet with a bonnie l Orally Twice a day Glimepiride 2 MG TAKE 1 TABLET BY MAGUE TH EVERY DAY WITH BREAKFAST OR THE FIRST MAIN MEAL OF THE DAY Varenicline Tartrate 1 MG 1 tablet after eating with a full glass of water Orally Twice a day for 30 days Vitamin D3 50 MCG (1999 UT) 1 capsule Or ally Once a day for 90 Days Famotidine 40 MG TAKE 1 TABLET BY MAGUE TH EVERY DAY AT BEDTIME Levothyroxine Sodium 100 MCG 1 tablet in the morning on an empty stomach Orally Once a day Montelukast Sodium 10 MG TAKE 1 TABLET B Y MOUTH EVERY DAY ProAir HFA 108 (90 Base) MCG/ACT 1 puff as needed Inhalation every 4 hrs Breztri Aerosphere 160-9-4.8 MCG/ACT INHALE 2 PUFFS BY MOUTH TWICE DAILY Rosuvastatin Calcium 10 MG TAKE 1 TABLET BY MOUTH EVERY DAY Pregabalin 150 MG TAKE 1 CAPSULE BY MO UTH TWICE DAILY Fluticasone Propionate 50 MCG/ACT 1 spray in each nostril Nasally Once a day Mirtazapine 15 MG 1 tablet at bedtime Orally Once a day Cymbalta 60 MG 1 capsule Orally Twi ce a day Cyclobenzaprine HCl 10 MG TAKE 1 TABLET BY MOUTH THREE TIMES DAILY NEEDED Voltaren 1 % 5 g Transdermal Ever y 6 hours Treatment Notes Assessment Notes Other This chart has been transcribed by a computerized dictation system. There are likely to be multiple heater helper inaccuracies despite chart review. Pending Test Test Name Order Date [id number] 11/12/2024 Hemoglobin [id number] 11/12/2024 Magnesium-[id number] 11/12/2024 TSH+Free [id number] 11/12/2024 Lipid [id number] 11/12/2024 Comp. Metabolic Panel [id number] 2024 Referrals Referral Date Details 12/02/2024 12/02/2024, Consulta tion and esophageal dilatation Next Appt Details Follow Up: 3 Months, Reason: Follow-up Provider Name:Ric castano, 02/11/2025 11:00:00 AM, [address] [place] [address], [phone], Progress Notes * Examination Category Sub-Category Detail Notes General Examination GENERAL APPEARANCE: in no ac [place] distress, well developed, well nourished HEAD: normocephalic, [...] PERIPHERAL PULSES: normal, 2+ throughou t MUSCULOSKELETAL: normal, full range o f motion LYMPH NODES: no cervical, axillar y, supraclavicular or inguinal adenopathy PSYCH: cognitive function i ntact, mood/affect full range ORAL CAVITY: mucosa moist, no les ions, palate normal, tongue in midline, well papillated PODIATRIC: Redness increased te mperature dorsal aspect of right foot Consultation Request Notes Referral Date Referring Provider Referred Provider Not es 11/12/2024 Ric Teresa , Consultation and esophageal dilatation
[2024-12-19 09:49] VITALS: BMI 22.0
[2024-12-20 11:01] VITALS: BP 178/83; PULSE 80; RESP 18; TEMP 36.6; O2SAT 99; BMI 22.2
[2024-12-20 11:18] LABS: Glucose, Whole Blood 119 mg/dL (60-115)
[2024-12-20] MEDS: Lactated Ringers 1,000 ML 50 ML IVCONT (11:30)
--- NOTE | 2024-12-20 11:50 | MHC.SHP ---
Pre-Procedural Eval Section A - 24 Hr Update-Section A only Date of Service: 12/20/24 The patient is an INPATIENT: No Changes since office visit: No Cold of Flu in the past 2 weeks, No New Medical Problems, No Changes in Medication and No Patient answered all questions The patient has been examined within 24 hours of the surgical procedure. The History & Physical has been completed within 30 days and I have reviewed it.: Yes Section B - Complete if H&P > 30 days Chief Complaint: Generalized abdominal rigidity Allergies: Allergies Allergy/AdvReac Type Severity Reaction Status Date / Time antibiotic Allergy Severe Palpitation Uncoded 12/20/24 11:35 s trazadone Allergy Seizure Uncoded 12/20/24 11:33 Plan I have reviewed the history and physical and performed a pertinent physical examination on my patient. No changes have occurred unless specified. Time Spent With Patient Time: Total time managing care of this patient today ____ minutes.
--- NOTE | 2024-12-20 12:16 | P.CONAN_ITS ---
COUNTS INCLUDE 234 BEDS AT THE [facility] Past Medical History Medical History Anesthesia complication Hypothyroid Osteoarthritis Depression Anxiety Ileostomy in place Ulcerative colitis Neuropathy Diabetes 1.5, managed as type 2 Hyperlipidemia Anemia Erosive gastritis GERD (gastroesophageal reflux disease) Hiatal hernia Surgical History Surgical History Hx of hysterectomy Hx of ileostomy Hx of ileostomy History of shoulder surgery History of repair of hiatal hernia History of foot surgery H/O total colectomy History of Problems with Anesthesia: No Social History Social History Patient Tobacco Use Status: Former Tobacco user Have you been hit, kicked, punched, or otherwise hurt by someone within the past year? If so, by whom?: No Are you DNR?: No Advance Directives: No Advance Directives Information Provided: Yes Nutrition Risks: No Nutritional Risk Meds Allergies Allergy/AdvReac Type Severity Reaction Status Date / Time antibiotic Allergy Severe Palpitation Uncoded 12/20/24 11:35 s trazadone Allergy Seizure Uncoded 12/20/24 11:33 Home Medications ?Medication ?Instructions ?Recorded ?Confirmed ?Last Taken ?Type albuterol sulfate 90 mcg/actuation 1 puff inhalation Q4H PRN sob 12/19/24 Unknown History aerosol inhaler (Ventolin HFA) cholecalciferol (vitamin D3) 50 50 mcg PO DAILY 12/19/24 Unknown History mcg (2,000 unit) capsule clonazepam 1 mg tablet 1 mg PO BEDTIME 12/19/24 Unknown History cyclobenzaprine 10 mg tablet mg 3XD 12/19/24 Unknown History duloxetine 60 mg capsule,delayed 60 mg PO BID 12/19/24 12/20/24 History release famotidine 40 mg tablet mg DAILY 12/19/24 Unknown History furosemide 20 mg tablet mg 12/19/24 Unknown History glimepiride 2 mg tablet mg DAILY 12/19/24 Unknown History hydroxyzine pamoate 25 mg capsule mg 12/19/24 Unknown History levothyroxine 100 mcg tablet mcg DAILY 12/19/24 Unknown History magnesium oxide 400 mg (241.3 mg 400 mg PO BID PRN unknown 12/19/24 Unknown History magnesium) tablet metformin 500 mg tablet mg 3XD 12/19/24 Unknown History metoprolol succinate 25 mg mg PO DAILY 12/19/24 Unknown History tablet,extended release 24 hr montelukast 10 mg tablet mg DAILY 12/19/24 Unknown History pregabalin 150 mg capsule mg 12/19/24 12/20/24 History ropinirole 0.25 mg tablet mg 12/19/24 Unknown History rosuvastatin 10 mg tablet mg 12/19/24 Unknown History varenicline tartrate 1 mg tablet 1 mg PO BID 12/19/24 Unknown History zolpidem 5 mg tablet mg 12/19/24 12/19/24 Unknown History Exam Height,Weight and Vital Signs: Height 5 ft 8 in Weight 66.23 kg Last Vital Signs Temp 97.9 F 12/20/24 11:01 Pulse 80 12/20/24 11:01 Resp 18 12/20/24 11:01 BP 178/83 H 12/20/24 11:01 Pulse Ox 99 12/20/24 11:01 O2 Del Method Room Air 12/20/24 11:01 Pertinent Lab Results Pertinent Lab Results: Laboratory Tests 12/20/24 11:12 POC Glucose 119 H Airway Mallampati Class: II (edentulous) TM Dist: >3cm Neck ROM: Full Denture: Upper and Lower Loose/Missing/Broken Teeth: Yes, Upper and Lower Heart: RRR Lungs: CTA Assessment and Plan Assessment Anesthesia Assessment: Anesthesia Plan Discussed and Chart Reviewed Final Anesthetic Review History of Problems with Anesthesia: No NPO: Yes ASA Class: III Final Preanesthetic Review: Meds/Allgs Chart Reviewed, Consent Obtained/Reviewed and Anes Risks/Benef Reviewed Patient Risk: Intermediate Procedure Risk: Intermediate Anesthetic Plan Anesthetic Plan: MAC: Disposition: Standard PACU
[2024-12-20 12:44] VITALS: BP 117/57; PULSE 67; RESP 18; TEMP 36.1; O2SAT 99
[2024-12-20 12:59] VITALS: BP 110/74; PULSE 69; RESP 18; O2SAT 99
--- NOTE | 2024-12-20 23:03 | OP_ITS ---
DATE OF SERVICE: 12/20/2024 SURGEON: Lance Shields MD INDICATIONS: Abnormal barium swallow and dysphagia. PREOPERATIVE DIAGNOSIS: POSTOPERATIVE DIAGNOSIS: PROCEDURE PERFORMED: Esophagoscopy. ESTIMATED BLOOD LOSS: COMPLICATIONS: ANESTHESIA: Medications: Monitored anesthesia care. ASSISTANTS: SPECIMENS: DESCRIPTION OF PROCEDURE: History and physical performed. The risks and benefits of the procedure were explained to the patient. Informed consent was obtained. The patient was placed in the left lateral decubitus position. The Olympus video gastroscope was introduced into the esophagus and proximal stomach. Examination was performed. The scope was removed. She tolerated the procedure well and was returned to recovery area in stable condition. Esophagus: The esophagus showed no definite stricture or narrowing. There were multiple secretions in the esophagus consistent with saliva. These were washed into the stomach. Stomach: The stomach was entered through the lower esophageal sphincter and a large amount of food was retained in the stomach. The endoscope was removed from the patient after desufflating as much as possible and after discussion with Dr. Alex from anesthesia, it was elected to abort the procedure and have the patient return for elective repeat endoscopy after clear liquid diet for 24 hours as an outpatient. MD JAVIER Robins/GAMAL / [phone] [id number]
== END 2024-12-20 13:25 | disposition home or self-care (01) ==
PROVIDERS: PCP Internal Medicine; Visit Provider Internal Medicine Gastroenterology
PROC: (CPT 43235; principal; 2024-12-20 13:10)
DX: R13.19 Other dysphagia (principal); K21.9 Gastro-esophageal reflux disease without esophagitis; K31.89 Other diseases of stomach and duodenum; K29.70 Gastritis, unspecified, without bleeding; K51.90 Ulcerative colitis, unspecified, without complications; E78.5 Hyperlipidemia, unspecified; E11.40 Type 2 diabetes mellitus with diabetic neuropathy, unspecified; Z93.2 Ileostomy status; Z90.49 Acquired absence of other specified parts of digestive tract; Z89.429 Acquired absence of other toe(s), unspecified side; M19.90 Unspecified osteoarthritis, unspecified site; Z79.84 Long term (current) use of oral hypoglycemic drugs; Z79.899 Other long term (current) drug therapy; Z88.1 Allergy status to other antibiotic agents; Z88.8 Allergy status to other drugs, medicaments and biological substances; Z98.890 Other specified postprocedural states; Z80.0 Family history of malignant neoplasm of digestive organs; Z87.891 Personal history of nicotine dependence
CPT/HCPCS: 43235; 82947

== ENCOUNTER 2024-12-24 07:21 | Day surgery (SDC) | payer MEDICARE, MEDICAID, SELFPAY ==
--- OUTSIDE RECORDS SUMMARY | 2024-12-23 13:52 | XMS_ITS ---
Author Organization [facility] Address [address] [place] [address] Care Team Providers Care Perforator Name Role Phone Ric Teresa MD Primary Care Provider Lance Almonte Jr [phone] Encounters Encounter Location Date Provider Diagnosis [facility] [address] [place] [id number] 12/20/2024 Lance Shields Jr PLAN OF TREATMENT Next Appt Details Provider Name:Lance rose Jr, 12/24/2024 10:00:00 AM, [address] [place] [address], [phone],
--- OUTSIDE RECORDS SUMMARY | 2024-12-23 13:52 | XMS_ITS ---
Author Organization [facility] Address [address] [place] [address] Care Team Providers Care Machine Shop Specialist Name Role Phone Ric Teresa Primary Care [...] Shields Clinical Notes Dr Shields p: f: [phone] Referral Priority Routine Referral Appointment Date 12/02/2024 [...] MAIN MEAL OF THE DAY Active Nystop 490851 UNIT/GM 1 application Exte rnally Twice a [...] Notes Problem Esophageal stricture (K22.2) Active confirmed 92276678 VITAL SIGNS Height 68 in 11/12/2024 Weight 145 lbs 11/12/2024 BMI 22.04 kg/m2 11/12/2024 Blood pressure systolic 120 mm Hg 11/12/19 25 Blood pressure diastolic 70 mm Hg 025 Heart Rate 80 /min 11/12/2024 Encounters Encounter Location Date Provider Diagnosis [address] [address] 11/12/2024 Ric Teresa Essential tremor G25 .0 ; Esophageal stricture K22.2 ; Type 2 diabetes mellitus with diabetic neuropathy, unspecified whether intermediate manager insulin use E11.40 ; Neuropathy G62.9 ; [...] diabetes mellitus with diabetic neuropathy, unspecified whether nursing home insulin use (ICD-10 - E11.40) 11/12/2024 Neuropathy [...] system. There are likely to be multiple human resources partner inaccuracies despite chart review. PLAN OF TREATMENT [...] system. There are likely to be multiple human resources partner inaccuracies despite chart review. Pending Test Test Name Order Date Phosphorus-[id number] 11/12/2024 Hemoglobin [id number] 11/12/2024 Magnesium-[id number] 11/12/2024 TSH+Free [id number] 11/12/2024 Lipid Panel-[id number] 11/12/2024 Comp. Metabolic Panel [id number] 2024 Referrals Referral Date Details 12/02/2024 12/02/2024, Consulta tion and esophageal dilatation Next Appt Details Follow Up: 3 Months, Reason: Follow-up Provider Name:Ric castano, 02/11/2025 11:00:00 AM, [address] [place] [address], [phone], Progress Notes * Examination Category Sub-Category Detail Notes General Examination GENERAL APPEARANCE: in no ac [place] distress, well developed, well nourished HEAD: normocephalic, [...]
--- OUTSIDE RECORDS SUMMARY | 2024-12-23 13:52 | XMS_ITS ---
Author Organization [facility] Address [address] [place] [address] Care Team Providers Care Advanced Practice Psychiatric Nurse Name Role Phone Brii LAY, Ric Primary Care Provider Lance Almonte Jr [phone] REASON FOR VISIT Patient presents today for [...] Notes Problem Other dysphagia (R13.19) Active confirmed 98340606 Problem Gastroesophageal reflux disease, unspecified whether esophagitis present (K21.9) Active confirmed 520492378 VITAL SIGNS Temperature 97.8 degrees Fahrenheit 12/02/19 25 Blood pressure systolic 000 mm Hg 12/02/19 25 Blood pressure diastolic 00 mm Hg 025 Height 5 ft 8 in in 12/02/2024 Weight 145 lbs 12/02/2024 BMI 22.04 kg/m2 12/02/2024 Encounters Encounter Location Date Provider Diagnosis [facility] [address] [facility] [address] [place] [address] 12/02/2024 Lance Shields Jr Other dysphagia R13.19 [...] 1 Year, Reason: Provider Name:Lance rose Jr, 12/24/2024 10:00:00 AM, [address] [place] [address], [place], [place], [phone], Progress Notes * Examination Category Sub-Category Detail Notes General Examination GENERAL APPEARANCE: in no ac [place] distress HEAD: normocephalic EYES: sclera non-icteric NECK/THYROID: [...]
--- OUTSIDE RECORDS SUMMARY | 2024-12-23 13:52 | XMS_ITS | Patient Health Record ---
Author Organization [facility] Address [address] [place] [address] Care Team Providers Care Mail Distribution Clerk Name Role Phone Brii LAY, Ric Primary Care Provider Lance Almonte Jr Unavailable RESULTS Component Value Reference Range Notes Glucose, Whole Blood Reviewed date:12/20/2024 03:30:23 PM Interpretation: Performing Lab:[facility], [address] [place] [id number] Notes/Report: Glucose, Whole Blood 119 60-115 mg/dL METER # : [id number] REASON FOR REFERRAL No Information MEDICATIONS Medication [...] Notes Problem Other dysphagia (R13.19) Active confirmed 48031105 Problem Abnormal UGI series (R93.3) Active confirmed 176300485 Problem Gastroesophageal reflux disease, unspecified whether esophagitis present (K21.9) Active confirmed 546742585 VITAL SIGNS Temperature 97.8 degrees Fahrenheit 12/02/2024 Blood pressure diastolic 00 mm Hg 12/02/2024 Height 5 ft 8 in in 12/02/2024 Blood pressure systolic 000 mm Hg 12/02/2024 Weight 145 lbs 12/02/2024 BMI 22.04 kg/m2 12/02/2024 Encounters Encounter Location Date Provider Diagnosis [facility] Outpatient [address] [place] [id number] 12/20/2024 Lance Shields Jr [facility] [address] [facility] [address] [place] [address] 12/02/2024 Lance Shields Jr Other dysphagia R13.19 and Gastroesophageal reflux disease, unspecified whether esophagitis present K21.9 [facility] [address] [place] [address] 12/11/2024 Lance Shields Jr Abnormal UGI series [...] Provider Name:Lance rose Jr, 12/24/2024 10:00:00 AM, [address] [place] [address], [place], [place], [phone], Insurance Providers Payer Name Payer Address Payer Phone Subscriber Number Group Number Insured Name Patient Relationship to Insured Coverage Start Date Coverage End Date MEDICARE OF [place] [address] [place] [id number] SAMPSON MCDONALD Self - patient is the insured MEDICAID OF [facility] [address] [place] [address] [id number] SAMPSON MCDONALD Self - patient is the insured MEDICAL (GENERAL) HISTORY Medical History History ICD Code Hyperlipidemia Diabetes mellitus type 2 with neuropathy Ulcerative colitis with total colectomy and ileostomy Osteoarthritis Anxiety/depression Hypothyroidism Surgical History Surgery Date(Month/Year) Foot surgery/partial toe amputation Hiatal hernia repair 08/20 Colectomy/ileostomy Right shoulder surgery
--- OUTSIDE RECORDS SUMMARY | 2024-12-23 13:52 | XMS_ITS | Clinical Summary ---
Author Organization [facility] Address [address] [place] [address] Care Team Providers Care Proof Machine Operator Name Role Phone Unavailable Primary Care Provider [...]
--- OUTSIDE RECORDS SUMMARY | 2024-12-23 13:52 | XMS_ITS ---
Author Organization [facility] Address [address] [place] [address] Care Team Providers Care Supervisor Particleboard Name Role Phone Brii LAY, Ric Primary [...] Problem Abnormal UGI series (R93.3) Active confirmed [id number] Encounters Encounter Location Date Provider Diagnosis [facility] [address] [place] [address] 12/11/2024 Lance Shields Jr Abnormal UGI series R93.3 ASSESSMENTS Encounter Date Diagnosis Assessment Notes Treatment Notes Treatment Clinical Notes 12/11/2024 Abnormal UGI series (ICD-10 - R93.3) PLAN OF TREATMENT Future Test Test Name Order Date UPPER GI ENDOSCOPY BALLOOON DILATION OF ESOPH 12/11/2024 Next Appt Details Provider Name:Lance rose Jr, 12/24/2024 10:00:00 AM, [address] [place] [address], [place], [place], [phone],
--- OUTSIDE RECORDS SUMMARY | 2024-12-23 13:53 | XMS_ITS ---
Author Organization [facility] Address [address] [place] [address] Care Team Providers Care Sap Technical Developer Name Role Phone Ric Teresa Primary Care Provider [phone] REASON FOR VISIT PT -1 form Encounters Encounter Location Date Provider Diagnosis [facility] [address] [place] [address] 12/18/19 Ric Teresa PLAN OF TREATMENT Next Appt Details Provider Name:Ric castano, 02/11/2025 11:00:00 AM, [address] [place], [address],
--- OUTSIDE RECORDS SUMMARY | 2024-12-23 13:53 | XMS_ITS ---
Author Organization [facility] Address [address] [place] [address] Care Team Providers Care Survey Director Name Role Phone Ric Teresa Primary Care [...] HCl 1 MG TAKE 1 TABLET BY [facility] THREE TIMES DAILY for 90 Active Pregabalin 150 MG TAKE 1 CAPSULE BY [facility] TWICE DAILY for 30 11/14/2024 Active Fluticasone [...] MOUTH EVERY DAY for 90 Active Nystop 052592 UNIT/GM 1 application Exte rnally Twice a [...] 11/28/2024 Encounters Encounter Location Date [facility] [address] [place] [address] 11/28/2024 Ric Teresa Esophageal stricture K22.2 ; Pain, joint, shoulder, left M25.512 ; Essential tremor G25.0 ; Type 2 diabetes mellitus with diabetic neuropathy, unspecified whether ferry terminal supervisor insulin use E11.40 ; Neuropathy G62.9 ; [...] diabetes mellitus with diabetic neuropathy, unspecified whether detention insulin use (ICD-10 - E11.40) 11/28/2024 Neuropathy [...] system. There are likely to be multiple program rep inaccuracies despite chart review. PLAN OF TREATMENT [...] system. There are likely to be multiple program rep inaccuracies despite chart review. Pending Test Test Name Order Date X ray : Shoulder, left 11/28/2024 Next Appt Details Follow Up: After the test, Modesta gill: Provider Name:Ric Nguyen eyad, 02/11/2025 11:00:00 AM, [address] [place] [address], [phone], Progress Notes * Examination Category Sub-Category Detail [...]
[2024-12-24 07:59] VITALS: BP 130/98; PULSE 67; RESP 20; TEMP 36.1; O2SAT 95; BMI 21.3
[2024-12-24] MEDS: Lactated Ringers 1,000 ML 80 ML IVCONT (08:13)
[2024-12-24 08:18] LABS: Glucose, Whole Blood 116 mg/dL (60-115)
--- NOTE | 2024-12-24 09:18 | MHC.SHP ---
Pre-Procedural Eval Section A - 24 Hr Update-Section A only Date of Service: 12/24/24 The patient is an INPATIENT: No Changes since office visit: No Cold of Flu in the past 2 weeks, No New Medical Problems, No Changes in Medication and No Patient answered all questions The patient has been examined within 24 hours of the surgical procedure. The History & Physical has been completed within 30 days and I have reviewed it.: Yes Section B - Complete if H&P > 30 days Chief Complaint: Dysphagia, unspecified Allergies: Allergies Allergy/AdvReac Type Severity Reaction Status Date / Time antibiotic Allergy Severe Palpitation Uncoded 12/24/24 08:26 s trazadone Allergy Seizure Uncoded 12/24/24 08:26 Plan I have reviewed the history and physical and performed a pertinent physical examination on my patient. No changes have occurred unless specified. Time Spent With Patient Time: Total time managing care of this patient today ____ minutes.
--- NOTE | 2024-12-24 09:32 | HO.ANESPROP2 ---
HPI - Anesthesia Eval Consult details Narrative: 69 F for egd [facility] Past Medical History Medical History Anesthesia complication Hypothyroid Osteoarthritis Depression Anxiety Ileostomy in place Ulcerative colitis Neuropathy Diabetes 1.5, managed as type 2 Hyperlipidemia Anemia Erosive gastritis GERD (gastroesophageal reflux disease) Hiatal hernia Family History Family history of problems with anesthesia: No Surgical History Surgical History Hx of hysterectomy Hx of ileostomy Hx of ileostomy History of shoulder surgery History of repair of hiatal hernia History of foot surgery H/O total colectomy History of Problems with Anesthesia: No Social History Social History Patient Tobacco Use Status: Former Tobacco user Have you been hit, kicked, punched, or otherwise hurt by someone within the past year? If so, by whom?: No Are you DNR?: No Advance Directives: No Advance Directives Information Provided: Yes Recently lost weight without trying: Yes Nutrition Risks: No Nutritional Risk Meds Allergies Allergy/AdvReac Type Severity Reaction Status Date / Time antibiotic Allergy Severe Palpitation Uncoded 12/24/24 08:26 s trazadone Allergy Seizure Uncoded 12/24/24 08:26 Active Medications: Current Medications Lactated Ringer's (Lr) 1,000 mls @ 80 mls/hr IVCONT .[id number] ARTIS Last Admin: 12/24/24 08:13 Dose: 80 mls/hr Home Medications ?Medication ?Instructions ?Recorded ?Confirmed ?Last Taken ?Type albuterol sulfate 90 mcg/actuation 1 puff inhalation Q4H PRN sob 12/19/24 Unknown History aerosol inhaler (Ventolin HFA) cholecalciferol (vitamin D3) 50 50 mcg PO DAILY 12/19/24 Unknown History mcg (2,000 unit) capsule clonazepam 1 mg tablet 1 mg PO BEDTIME 12/19/24 Unknown History cyclobenzaprine 10 mg tablet mg 3XD 12/19/24 Unknown History duloxetine 60 mg capsule,delayed 60 mg PO BID 12/19/24 12/24/24 History release famotidine 40 mg tablet mg DAILY 12/19/24 Unknown History furosemide 20 mg tablet mg 12/19/24 Unknown History glimepiride 2 mg tablet mg DAILY 12/19/24 Unknown History hydroxyzine pamoate 25 mg capsule mg 12/19/24 Unknown History levothyroxine 100 mcg tablet mcg DAILY 12/19/24 Unknown History magnesium oxide 400 mg (241.3 mg 400 mg PO BID PRN unknown 12/19/24 Unknown History magnesium) tablet metformin 500 mg tablet mg 3XD 12/19/24 Unknown History metoprolol succinate 25 mg mg PO DAILY 12/19/24 Unknown History tablet,extended release 24 hr montelukast 10 mg tablet mg DAILY 12/19/24 Unknown History pregabalin 150 mg capsule mg 12/19/24 12/24/24 History ropinirole 0.25 mg tablet mg 12/19/24 12/24/24 History rosuvastatin 10 mg tablet mg 12/19/24 Unknown History varenicline tartrate 1 mg tablet 1 mg PO BID 12/19/24 Unknown History zolpidem 5 mg tablet mg 12/19/24 12/19/24 Unknown History Exam Height,Weight and Vital Signs: Height 5 ft 8 in Weight 140 lb Last Vital Signs Temp 97 F 12/24/24 07:59 Pulse 67 12/24/24 07:59 Resp 20 12/24/24 07:59 BP 130/98 H 12/24/24 07:59 Pulse Ox 95 12/24/24 07:59 O2 Del Method Room Air 12/24/24 07:59 Pertinent Lab Results Pertinent Lab Results: Laboratory Tests 12/24/24 08:12 POC Glucose 116 H Airway Mallampati Class: II TM Dist: >3cm Neck ROM: Full Denture: Upper and Lower Assessment and Plan Assessment Anesthesia Assessment: Anesthesia Plan Discussed and Chart Reviewed Final Anesthetic Review Family History of Problems with Anesthesia: No History of Problems with Anesthesia: No NPO: Yes ASA Class: III Final Preanesthetic Review: No Changes in Pt Med Stat, Meds/Allgs Chart Reviewed, Consent Obtained/Reviewed and Anes Risks/Benef Reviewed Patient Risk: Intermediate Procedure Risk: Low Anesthetic Plan Anesthetic Plan: MAC: Disposition: Standard PACU
[2024-12-24 09:54] VITALS: BP 103/58; PULSE 66; RESP 16; TEMP 36.4; O2SAT 96
--- NOTE | 2024-12-24 10:01 | OP_ITS ---
DATE OF SERVICE: 12/24/2024 SURGEON: Lance Shields MD INDICATIONS: Abnormal upper GI series and dysphagia. PREOPERATIVE DIAGNOSIS: POSTOPERATIVE DIAGNOSIS: PROCEDURE PERFORMED: Upper endoscopy with balloon dilation and biopsy. ESTIMATED BLOOD LOSS: COMPLICATIONS: ANESTHESIA: Monitored anesthesia care. ASSISTANTS: SPECIMENS: DESCRIPTION OF PROCEDURE: A history and physical performed. The risks and benefits of the procedure were explained to the patient. Informed consent was obtained. The patient was placed in the left lateral decubitus position. The Olympus videogastroscope was introduced into the esophagus, stomach, and duodenum. Examination was performed. The scope was removed. She tolerated the procedure well and was returned to recovery area in stable condition. FINDINGS: Esophagus; the esophagus did not show any definite web in the upper esophagus. The EG junction was normal. Balloon dilation of the lower esophageal sphincter to 20 mm and the upper esophageal sphincter to 18 mm was performed with 60 second inflations with no immediate complications. Biopsies were obtained from the mid esophagus to evaluate for eosinophilic esophagitis. Stomach; the stomach showed no evidence of masses or ulcers. There was a small amount of food in the fundus. Antral biopsies were obtained to evaluate for H pylori. Duodenum; the bulb and 2nd portion were normal. IMPRESSION: Dysphagia. RECOMMENDATION: Follow up biopsy results. MD JAVIER Robins/FRANKL / [id number]
[2024-12-24 10:14] VITALS: BP 121/48; PULSE 61; RESP 18; TEMP 36.1; O2SAT 94
== END 2024-12-24 10:30 | disposition home or self-care (01) ==
PROVIDERS: PCP Internal Medicine; Visit Provider Internal Medicine Gastroenterology
PROC: (CPT 43249; principal; 2024-12-24 09:10)
DX: R13.19 Other dysphagia (principal); K21.9 Gastro-esophageal reflux disease without esophagitis; K29.60 Other gastritis without bleeding; E78.5 Hyperlipidemia, unspecified; E03.9 Hypothyroidism, unspecified; F41.8 Other specified anxiety disorders; M19.90 Unspecified osteoarthritis, unspecified site; E11.40 Type 2 diabetes mellitus with diabetic neuropathy, unspecified; Z79.84 Long term (current) use of oral hypoglycemic drugs; Z79.899 Other long term (current) drug therapy; Z90.49 Acquired absence of other specified parts of digestive tract; Z93.2 Ileostomy status; Z98.890 Other specified postprocedural states; Z87.891 Personal history of nicotine dependence
CPT/HCPCS: 43249; 43239; 82947; 88305; 88342; C1726; J2003; J2704

== ENCOUNTER → 2025-01-16 08:07 | Outpatient (REF) | payer MEDICARE, MEDICAID, SELFPAY ==
--- NOTE | ~2025-01-16 | NM_ITS ---
EXAMINATION: TX RADIONUCLIDE SOLID FOOD GASTRIC EMPTYING 4-HOUR STUDY CLINICAL INFORMATION: History of ileostomy 2530 years ago. Dysphagia COMPARISON: None TECHNIQUE: A standard meal consisting of 4 oz of Egg Beaters brand tagged with 0.85 microcuries Tc-99m Sulfur Colloid, 4 oz water and 1 slice of toast with jelly was administered orally to the patient. Images were obtained using a dual head gamma camera in the anterior and posterior projections over of the stomach immediately post ingestion and at hourly intervals up to 4 hours post ingestion. The anterior and posterior counts at each time interval were averaged using the geometric mean and expressed as percentage of the immediate post ingestion counts. FINDINGS: There is good visualization of activity in the stomach immediately post ingestion. As the study progresses, there is good clearance of activity from the stomach and visualization of progressively increasing small bowel activity. By the end of the study, there is almost no retention noted in the stomach. Retention in the stomach at each time interval was: 1 hour and 82%% (normal 37%-90%) 2 hours 77% (normal 30%-60%) 3 hours 59% 4 hours 35% (normal 0%-10%) TX/TX gastric emptying study IMPRESSION: Abnormal 4-hour solid food gastric emptying study. For solid meal, rapid gastric emptying is less than 30% at 60 minutes. Delayed gastric emptying criteria is more than 60% remaining at 120 minutes or more than 10% at 240 minutes. The 4-hour value is the best discriminator of a normal or abnormal result). Gastric emptying study grading per JNMT Consensus Recommendations in 2008 (https://tech.snmjournals.org/content/36/44) Grade 1 (mild retention): 11-20% at 4h Grade 2 (moderate retention): 21-35% at 4h Grade 3 (severe retention): 36-50% at 4h Grade 4 (very severe retention): >50% retention at 4h Electronically signed by: Kris Preez MD 01/16/2025 02:42 PM EDT
--- OUTSIDE RECORDS SUMMARY | 2025-01-16 08:11 | XMS_ITS | Encounter Summary ---
Author Organization [facility] Address [address] [place] [address] Phone Care Team Providers Care Reactor Service Operator Name Role Phone Ric Teresa MD Primary Care Provider Encounter Details Date Type Department Care Team (Latest Contact Info) Description 10/05/2021 Transcribe Orders [facility] [address] [address] Janell Leon NP [address] [place] [address] [email or web address] Gastroesophageal reflux disease, unspecified whether esophagitis present (Primary Dx) Social History Tobacco Use Types Packs/Day Years Used Date Smoking Tobacco: Never Assessed Sex and Gender Information Value Date Recorded Sex Assigned at Not on file Gender Identity Not on file Sexual Orientation Not on file documented as of this encounter Plan of Treatment Not on file documented as of this encounter Visit Diagnoses Diagnosis Gastroesophageal reflux disease, unspecified whether esophagitis present- Primary documented in this encounter Care Teams Reactor Service Operator Relationship Specialty Start Date End Date Ric Teresa MD [address] [place] [id number] PCP - General Internal Medicine 10/05/21 documented as of this encounter Additional Source Comments The information contained in this document represents components of the legal health record. It is not the complete legal health record.[facility]
--- OUTSIDE RECORDS SUMMARY | 2025-01-16 08:11 | XMS_ITS | Encounter Summary ---
Author Organization [facility] Address [address] [place] [address] Phone Care Team Providers Care Water Hydrant Installer Name Role Phone Ric Teresa MD Primary Care Provider Encounter Details Date Type Department Care Team (Latest Contact Info) Description 11/01/2022 Transcribe Orders Virtual Department [address] [place] [address] Senait Hua NP [address] [place] [address] Abdominal pain, unspecified abdominal location (Primary Dx) Social History Tobacco Use Types Packs/Day Years Used Date Smoking Tobacco: Every Day Cigarettes Smokeless Tobacco: Never Comments:since age 17 Alcohol Use Standard Drinks/Week Comments Yes 0 (1 standard drink = 0.6 oz pur e alcohol) occ Sex and Gender Information Value Date Recorded Sex Assigned at Not on file Gender Identity Not on file Sexual Orientation Not on file documented as of this encounter Plan of Treatment Not on file documented as of this encounter Results * US ABDOMEN COMPLETE (ADULT) (11/28/2022 10:42 AM EST) Anatomical Region Laterality Modality Abdomen Ultrasound 11/28/2022 12:5 2 PM EST Impressions 11/28/2022 1:00 PM EST Evaluation limited by overlying bowel gas. 1. ??Increased echogenicity of the hepatic parenchyma suggestive of hepatic steatosis. 2. ??Nonvisualization of the CBD and poor visualization of the pancreas secondary to overlying bowel gas. No definite intrahepatic biliary ductal dilatation. 3. ??Status post cholecystectomy. Narrative 11/28/2022 1:00 PM EST US ABDOMEN COMPLETE (ADULT) TECHNIQUE: Abdominal Ultrasound Complete. COMPARISON: There is no prior study available for comparison FINDINGS: Evaluation limited by overlying bowel gas Liver: There is increased echogenicity of the hepatic parenchyma in keeping with hepatic steatosis. No focal hepatic lesions demonstrated sonographically. Main Portal Vein: Patent with normal direction of flow. Gallbladder: Surgically absent Biliary: Evaluation limited secondary to overlying bowel gas. The common bile duct is unable to discretely visualize. No definite intrahepatic biliary ductal dilatation. Pancreas: Incompletely visualized secondary to overlying bowel gas. Spleen: Normal echogenicity. No splenomegaly. Kidneys: Normal in size bilaterally. Bilateral simple renal cysts measuring up to 1.2 cm on the right and 1.5 cm on the left. No stones or hydronephrosis. ?? Aorta: Normal, where visualized sonographically. IVC: Normal intrahepatic segment. Procedure Note Natividad Paz MD - 11/28/2022 US ABDOMEN COMPLETE (ADULT) TECHNIQUE: Abdominal Ultrasound Complete. COMPARISON: There is no prior study available for comparison FINDINGS: Evaluation limited by overlying bowel gas Liver: There is increased echogenicity of the hepatic parenchyma inkeeping with hepatic steatosis. No focal hepatic lesions demonstratedsonographically. Main Portal Vein: Patent with normal direction of flow. Gallbladder: Surgically absent Biliary: Evaluation limited secondary to overlying bowel gas. The commonbile duct is unable to discretely visualize. No definite intrahepaticbiliary ductal dilatation. Pancreas: Incompletely visualized secondary to overlying bowel gas. Spleen: Normal echogenicity. No splenomegaly. Kidneys: Normal in size bilaterally. Bilateral simple renal cystsmeasuring up to 1.2 cm on the right and 1.5 cm on the left. No stones orhydronephrosis. Aorta: Normal, where visualized sonographically. IVC: Normal intrahepatic segment. IMPRESSION: Evaluation limited by overlying bowel gas. 1. Increased echogenicity of the hepatic parenchyma suggestive of hepaticsteatosis. 2. Nonvisualization of the CBD and poor visualization of the pancreassecondary to overlying bowel gas. No definite intrahepatic biliary ductaldilatation. 3. Status post cholecystectomy. Senait Hua METAL CANS SUPERVISOR IMG US ABDOMEN documented in this encounter Visit Diagnoses Diagnosis Abdominal pain, unspecified abdominal location- Primary Abdominal pain, unspecified abdominal location documented in this encounter Care Teams Water Hydrant Installer Relationship Specialty Start Date End Date Ric Teresa MD [address] [place] [id number] PCP - General Internal Medicine 10/05/21 documented as of this encounter Additional Source Comments The information contained in this document represents components of the legal health record. It is not the complete legal health record.[facility]
--- OUTSIDE RECORDS SUMMARY | 2025-01-16 08:12 | XMS_ITS ---
Author Organization [facility] Address [address] [place] [phone] Care Team Providers Care Subcontracts Manager Name Role Phone Brii LAY, Ric Primary Care Provider Lance Almonte Jr [phone] REASON FOR VISIT DYSPHAGIA/ABNORMAL UGI Medications Medication SIG (Take, Route, Frequency, Duration) Notes Start Date End Date Status Zolpidem Tartrate 5 MG TAKE 1 TABLET BY MOUTH DAILY AT BEDTIME NEEDED FOR SLEEP Oral for 30 Active Mirtazapine 15 MG TAKE 1 TABLET BY MAGUE TH DAILY AT BEDTIME Oral for 30 Active Vitamin D3 50 MCG (1999 UT) TAKE 1 CAPSU LE BY MOUTH EVERY DAY Oral for 90 Active Metoprolol Succinate ER 25 MG Oral for 90 Active Famotidine 40 MG Oral for 90 A ctive Montelukast Sodium 10 MG Oral for 90 Active Glimepiride 2 MG Oral for 90 A ctive Levothyroxine Sodium 100 MCG Oral for 90 Active Varenicline Tartrate 1 MG Oral for 90 Active Furosemide 20 MG TAKE 1 TABLET BY MAGUE TH TWICE DAILY Oral for 90 Active metFORMIN HCl 500 MG Oral for 90 Active rOPINIRole HCl 1 MG TAKE 1 TABLET BY MAGUE TH THREE TIMES DAILY Oral for 90 Active hydrOXYzine Pamoate 25 MG Oral for 30 Active clonazePAM 2 MG Oral for 30 Ac tive DULoxetine HCl 60 MG Oral for 90 Active Rosuvastatin Calcium 10 MG Oral for 90 Active Ventolin HFA 108 (90 Base) MCG/ACT INHALE 1 PUFF BY MOUTH EVERY 4 HOURS NEEDED Inhalation for 33 Active Pregabalin 150 MG TAKE 1 CAPSULE BY MO UTH TWICE DAILY Oral for 30 Active Cyclobenzaprine HCl 10 MG TAKE 1 TABLET BY MOUTH THREE TIMES DAILY NEEDED Oral for 10 Active Magnesium Oxide -Mg Supplement 400 (240 Mg) MG TAKE 1 TABLET BY MOUTH TWICE DAILY NEEDED Oral for 90 Active Encounters Encounter Location Date Provider Diagnosis [facility] Outpatient [address] [place] [id number] 12/24/2024 Lance Shields Jr Dysphagia R13.10 and Abnormal UGI series R93.3 Assessments Encounter Date Diagnosis (ICD Code) Assessment Notes Treatment Notes Treatment Clinical Notes Section Notes 12/24/2024 Dysphagia (ICD-10 - R13.10) 12/24/2024 Abnormal UGI series (ICD-10 - R93.3) Plan Of Treatment No Information Progress Notes * JOSUE MCDONALD:[birth year] (69 yo F)Acc No.[id number]:12/24/2024 EGD/MAC Patient:?ERYNKanaHumphreyMUKUNDJACOBSAMPSON Provider:?Lance Shields MD :1955???Age:69 Y???Sex:Female D ate:12/24/2024 Address:[address] [place] [address] Pcp:Ric Teresa MD Subjective: * Chief Complaints: * ???1. DYSPHAGIA/ABNORMAL UGI . * Medical History:? * Medications:?Taking Magnesiu m Oxide -Mg Supplement 400 (240 Mg) MG Tablet TAKE 1 TABLET BY MOUTH TWICE DAILY NEEDED Oral , Taking Cyclobenzaprine HCl 10 MG Tablet TAKE 1 TABLET BY MOUTH THREE TIMES DAILY NEEDED Oral , Taking Pregabalin 150 MG Capsule TAKE 1 CAPSULE BY MOUTH TWICE DAILY Oral , Taking Ventolin HFA 108 (90 Base) MCG/ACT Aerosol Solution INHALE 1 PUFF BY MOUTH EVERY 4 HOURS NEEDED Inhalation , Taking Rosuvastatin Calcium 10 MG Tablet Oral , Taking clonazePAM 2 MG Tablet Oral , Taking hydrOXYzine Pamoate 25 MG Capsule Oral , Taking rOPINIRole HCl 1 MG Tablet TAKE 1 TABLET BY MOUTH THREE TIMES DAILY Oral , Taking metFORMIN HCl 500 MG Tablet Oral , Taking DULoxetine HCl 60 MG Capsule Delayed Release Particles Oral , Taking Furosemide 20 MG Tablet TAKE 1 TABLET BY MOUTH TWICE DAILY Oral , Taking Varenicline Tartrate 1 MG Tablet Oral , Taking Levothyroxine Sodium 100 MCG Tablet Oral , Taking Glimepiride 2 MG Tablet Oral , Taking Montelukast Sodium 10 MG Tablet Oral , Taking Famotidine 40 MG Tablet Oral , Taking Metoprolol Succinate ER 25 MG Tablet Extended Release 24 Hour Oral , Taking Vitamin D3 50 MCG (1999 UT) Capsule TAKE 1 CAPSULE BY MOUTH EVERY DAY Oral , Taking Mirtazapine 15 MG Tablet TAKE 1 TABLET BY MOUTH DAILY AT BEDTIME Oral , Taking Zolpidem Tartrate 5 MG Tablet TAKE 1 TABLET BY MOUTH DAILY AT BEDTIME NEEDED FOR SLEEP Oral Objective: * Vitals:? Assessment: * Assessment: 1.?Dysphagia - R13.10 (Prima ry)???2.?Abnormal UGI series - R93.3??? Plan: * Treatment: * Procedure Codes:?82377 UPPER GI ENDOSCOPY, BIOPSY, 16910 ESOPH ENDOSCOPY, DILATION, Modifiers: 59 * * The named appointment provid er may or may not be the originator of this progress note, and it is not deemed complete until electronically signed by the appointment provider. Sign off status: Pending * Provider:?Lance Shields MD Date:?0 12/24/2024 Generated for Damien hudson/Melissa/Lexussmitting on:?01/16/2025 08:12 AM EDT
--- OUTSIDE RECORDS SUMMARY | 2025-01-16 08:12 | XMS_ITS | Clinical Summary ---
Author Organization [facility] Address [address] [place] [address] Care Team Providers Care Websphere Architect Name Role Phone Unavailable Primary Care Provider [...]
--- OUTSIDE RECORDS SUMMARY | 2025-01-16 08:12 | XMS_ITS | Encounter Summary ---
Author Organization [facility] Address [facility] [address] [place] [address] Phone Care Team Providers Care Dumper Central [employer]crete Mixing [employer] Name Role Phone Ric Teresa MD Primary Care Provider Encounter Details Date Type Department Care Team (Late st Contact Info) Description 10/28/2021 Procedure Pass [facility] Endoscopy Admitting Dept Virtual Department [address] [place] [address] Social History Tobacco Use Types Packs/Day Years [...] documented as of this encounter Visit Diagnoses Not on filedocumented in this encounter Care Teams Dumper [employer]ing [employer] Relationship Specialty Start Date End Date Ric Teresa MD [address] [place] [address] PCP - General Internal Medicine 10/05/21 documented as of this encounter Additional Source Comments The information contained in this document represents components of the legal health record. It is not the complete legal health record.[facility]
--- OUTSIDE RECORDS SUMMARY | 2025-01-16 08:12 | XMS_ITS | Encounter Summary ---
Author Organization [facility] Address [facility] [address] [place] [address] Phone Care Team Providers Care Immunology Teacher Name Role Phone Ric Teresa MD Primary Care Provider Encounter Details Date Type Department Care Team (Late st Contact Info) Description 09/08/2022 Procedure Pass [address] [place] [address] Social History Tobacco Use Types Packs/Day Years [...] on filedocumented in this encounter Care Teams Immunology Teacher Relationship Specialty Start Date End Date Ric Teresa MD [address] [place] [address] PCP - General Internal Medicine 10/05/21 documented as of this encounter Additional Source Comments The information contained in this document represents components of the legal health record. It is not the complete legal health record.[facility]
--- OUTSIDE RECORDS SUMMARY | 2025-01-16 08:12 | XMS_ITS | Clinical Summary ---
Author Organization [facility] Address [address] [place] [address] Phone Care Team Providers Care Mica Paster Name Role Phone Ric Teresa MD Primary Care Provider Allergies Active Allergy Reactions Criticality Noted Date Comments Aspirin 10/26/2021 Amoxicillin-Pot Clavulanate 10/26/20 21 Meperidine 10/26/2021 Doxycycline Hyclate 10/26/2021 Lkyeakqfei-Ktayzug-Eeqmfbwq 10/26/20 21 Levofloxacin 10/26/2021 Guaifenesin 10/26/2021 Mouth sores Sulfamethoxazole-Trimethoprim 2020 Trazodone 10/26/2021 Trazodone-Dietary Supp No.8 10/26/20 21 Sertraline 10/26/2021 Medications Medication Sig Dispensed Refills Start Date End Date Status metFORMIN (GLUCOPHAGE) 500 MG tablet Take 500 mg by mouth 2 (two) times a day with meals. Active guaiFENesin (MUCINEX) 600 mg ER biphasic tablet Take 1,200 mg by mouth 2 (two) times a day as needed for congestion. Active mirtazapine (REMERON) 15 MG tablet Take 15 mg by mouth nightly at bedtime. Active hydrOXYzine (VISTARIL) 25 MG capsule Take 25 mg by mouth 3 (three) times a day as needed for itching. Active meclizine (ANTIVERT) 25 MG tablet Take 25 mg by mouth 3 (three) times a day as needed. Active cyanocobalamin (VITAMIN B-12) 1,000 mcg/mL injection Inject 1,000 mcg into the muscle every 30 (thirty) days. Active levothyroxine (SYNTHROID, LEVOTHROID) 100 MCG tablet Take 100 mcg by mouth every morning. Active cyclobenzaprine (FLEXERIL) 10 MG tablet Take 10 mg by mouth nightly at bedtime as needed. Active diclofenac sodium (VOLTAREN) 1 % Gel Apply topically 4 (four) times a day as needed. Active famotidine (PEPCID) 40 MG tablet Take 40 mg by mouth nightly at bedtime. Active sucralfate (CARAFATE) 100 mg/mL suspension Take 1 g by mouth 4 (four) times a day. Active DULoxetine (CYMBALTA) 60 MG capsule Take 60 mg by mouth daily. Active rosuvastatin (CRESTOR) 10 MG tablet Take 10 mg by mouth daily. Active pregabalin (LYRICA) 150 MG capsule Take 150 mg by mouth 2 (two) times a day. Active budesonide/glycopyr/f ormoterol (BREZTRI AEROSPHERE INHL) Inhale 2 puffs into the lungs 2 (two) times a day. Active albuterol 90 mcg/actuation inhaler Inhale 2 puffs into the lungs every 6 (six) hours as needed for wheezing. Active omeprazole (PRILOSEC) 20 MG capsule Take 20 mg by mouth daily. Active esomeprazole (NEXIUM) 40 MG capsule Take 40 mg by mouth daily before breakfast. Active clonazePAM (KLONOPIN) 0.5 MG tablet Take 0.5 mg by mouth 2 (two) times a day as needed for anxiety. Active Social History Tobacco Use Types Packs/Day Years Used Date Smoking Tobacco: Every Day Cigarettes Smokeless Tobacco: Never Comments:since age 17 Alcohol Use Standard Drinks/Week Comments Yes 0 (1 standard drink = 0.6 oz pur e alcohol) occ Education Answer Date Recorded Are you interested in more education? Not on jennifer e 02/24/2023 Are you concerned about learning? Not on file 02/24/2023 No 02/24/2023 No 02/24/2023 Digital Access Answer Date Recorded No 03/27/2023 No 03/27/2023 No 03/27/2023 Reliable internet access at home? Not on file 03/27/2023 Device with a working camera? Not on file Sex and Gender Information Value Date Recorded Sex Assigned at Not on file Gender Identity Not on file Sexual Orientation Not on file Last Filed Vital Signs Vital Sign Reading Time Taken Comments Blood Pressure 119/74 10/28/2021 11:45 AM EST Pulse 69 10/28/2021 11:45 AM EST Temperature 36 ??C (96.8 ??F) 10/28/2021 11:29 AM EST Respiratory Rate 16 10/28/2021 11:45 AM EST Oxygen Saturation 96% 10/28/2021 11:45 AM EST Inhaled Oxygen Concentration - - Weight 63.5 kg (140 lb) 10/17/2022 5:04 PM EST Height 172.7 cm (5' 8 ) 10/17/2022 5:04 PM EST Body Mass Index 21.29 10/17/2022 5:04 PM EST Plan of Treatment Health Maintenance Due Date Last Done Comments LIPID PANEL 1957 TSH LEVEL 1957 DEPRESSION SCREENING 1969 SMOKING Hx and SMOKELESS TOBACCO SCREENING 1970 HEPATITIS C SCREENING 1975 MAMMOGRAM 1997 COLOGUARD 2002 COLONOSCOPY 2002 COLORECTAL CANCER SCREENING 2002 FIT TEST 2002 FOBT 2002 SIGMOIDOSCOPY 2002 VIRTUAL COLONOSCOPY 2002 ZOSTER VACCINES (1 of 2) 2007 PNEUMOCOCCAL VACCINES (50+ years) (2 of 2 - PCV) 03/13/2013 03/13/2012 OSTEOPOROSIS SCREENING INITIAL (ONE-TIME) 2022 Adult Td,Tdap Booster 06/13/2023 06/13/2013 CREATININE LEVEL 11/01/2023 11/01/2022 INFLUENZA VACCINE (#1) 2024 2, 07/20/2022, 01/22/2022, Additional history exists COVID-19 VACCINE ( - 2023- season) 2024 RSV VACCINE (1 - 1-dose 75+ series) 02/05/2032 HEPATITIS A VACCINES Aged Out No long er eligible based on patient's age to complete this topic HIB VACCINES Aged Out No longer eligi ble based on patient's age to complete this topic MENINGOCOCCAL VACCINES (ACWY) Aged Out No longer eligible based on patient's age to complete this topic Medical Devices Not on file Procedures Procedure Name Priority Date/Time Associated Diagnosis Comments COMPREHENSIVE METABOLIC PANEL Routine 11/01/2022 2:53 PM EST Gastroesophageal reflux disease, unspecified whether esophagitis present from Last 3 Months or Most Recently Relevant to Health Maintenance Results * (ABNORMAL) Comprehensive metabolic panel (11/01/2022 2:53 PM EST) SODIUM 139 133 - 146 mmol/L [facility] POTASSIUM 5.2(H) 3.3 - 5.1 mmol/L [facility] CHLORIDE 102 96 - 108 mmol/L [facility] CO2 27 21 - 35 mmol/L [facility] BUN 16 6 - 19 mg/dL [facility] CREATININE 0.90 0.5 - 1.5 mg/dL [facility] GLUCOSE 124(H) 70 - 99 mg/dL [facility] ALBUMIN 4.3 3.9 - 4.8 g/dL [facility] TOTAL PROTEIN 7.5 6.5 - 8.0 g/dL [facility] CALCIUM 11.8(H) 8.4 - 10.3 mg/dL [facility] ALKALINE PHOSPHATASE 95 39 - 117 U/L [facility] TOTAL BILIRUBIN 0.3 0.0 - 1.2 mg/dL [facility] AST 25 0 - 37 U/L [facility] ALT 14 0 - 40 U/L [facility] GLOBULIN 3.2 1 - 4.8 g/dL [facility] EGFR 71 >59 mL/min/1.7 3m2 [facility] Comment:Estimated glomerular filtration rate calculated using the CKD-EPI refit equation. ANION GAP 15 10 - 20 mmol/L [facility] Blood 11/01/2022 2:53 PM EST 11/01/2022 2:55 PM EST Senait Hua NP LAB BLOOD ORDERAB LES [facility] [address] [place] [address] from Last 3 Months or Most Recently Relevant to Health Maintenance Care Teams Mica Paster Relationship Specialty Start Date End Date Ric Teresa MD [address] [place] [address] SUSANNA Coronado PCP - General Internal Medicine 10/05/21 Additional Source Comments The information contained in this document represents components of the legal health record. It is not the complete legal health record.[facility]
--- OUTSIDE RECORDS SUMMARY | 2025-01-16 08:12 | XMS_ITS ---
Author Organization [facility] Address [address] [place] [address] Care Team Providers Care Performing Artist Name Role Phone Ric Teresa Primary Care Provider REASON FOR VISIT PT -1 form Encounters Encounter Location Date Provider Diagnosis [facility] [address] [place] [address] 12/18/19 Ric Teresa PLAN OF TREATMENT Next Appt Details Provider Name:Ric castano, 02/11/2025 11:00:00 AM, [address] [place], [phone],
--- OUTSIDE RECORDS SUMMARY | 2025-01-16 08:12 | XMS_ITS ---
Author Organization [facility] Address [address] [place] [phone] Care Team Providers Care Stamping Die Maker Name Role Phone Brii LAY, Ric Primary Care Provider Lance Almonte Jr Problems Problem Type SNOMED Code ICD Code Onset Dates Problem Status W/U Status Risk Notes Problem Dysphagia (01824120) Dysphagia (R13.10) Active confirmed Encounters Encounter Location Date Provider Diagnosis [facility] Outpatient [address] [place], [place] [phone] 12/20/2024 Lance Shields Jr Abnormal UGI series R93.3 and Dysphagia R13.10 Assessments Encounter Date Diagnosis (ICD Code) Assessment Notes Treatment Notes Treatment Clinical Notes Section Notes 12/20/2024 Abnormal UGI series (ICD-10 - R93.3) 12/20/2024 Dysphagia (ICD-10 - R13.10) Plan Of Treatment No Information Progress Notes * JESU MCDONALDB:[birth year] (69 yo F)Acc No.[id number]:12/20/2024 EGD/MAC Patient:?ERYNKanaHumphreyMUKUNDJACOBSAMPSON Provider:?Lance Shields MD :1955???Age:69 Y???Sex:Female D ate:12/20/2024 Address:[address] [place], [place] [phone] Pcp:Ric Teresa MD Subjective: * Chief Complaints: * ??? * Medical History:? Objective: * Vitals:? Assessment: * Assessment: 1.?Abnormal UGI series - R93 .3 (Primary)???2.?Dysphagia - R13.10??? Plan: * Treatment: * Procedure Codes:?45064 EGD B ALLOON DIL ESOPH30 MM/>, Modifiers: 53 * * The named appointment provid er may or may not be the originator of this progress note, and it is not deemed complete until electronically signed by the appointment provider. Sign off status: Pending * Provider:?Lance Shields MD Date:?0 12/20/2024 Generated for Damien hudson/Melissa/eTransmitting on:?01/16/2025 08:11 AM EDT
--- OUTSIDE RECORDS SUMMARY | 2025-01-16 08:12 | XMS_ITS | Encounter Summary ---
Author Organization [facility] Address [address] [place] [phone] Phone Care Team Providers Care Latex Ribbon Machine Operator Name Role Phone Ric Teresa MD Primary Care Provider Reason for Referral * MRI/CAT Scan - Closed Specialty Diagnoses / Procedures Referred By Contac t Referred To Contact Radiology Diagnoses Weight loss Frequent falls Tremors of nervous system Procedures MRI Brain Ric Teresa MD [address] [place] [address] Referral ID Status Reason Start Date Expiration Date Visits Re quested Visits Authorized [id number] Closed 09/08/2022 09/08/2023 1 1 Encounter Details Date Type Department Care Team (Latest Contact Info) Description 09/08/2022 Transcribe Orders Virtual Department [address] [place] [phone] Ric Teresa MD [address] [place] [address] Weight loss (Primary Dx); History of smoking; Frequent falls; Tremors of nervous system Social History Tobacco Use Types Packs/Day Years [...] documented as of this encounter Results * MRI BRAIN WITHOUT CONTRAST (10/26/2022 6:38 PM EST) Anatomical Region Laterality Modality Head Magnetic Resonan ce 10/26/2022 8:21 PM EST Impressions 10/26/2022 8:56 PM EST No clear intracranial cause for the reported symptoms identified. Narrative 10/26/2022 8:56 PM EST MRI BRAIN WITHOUT CONTRAST TECHNIQUE: MRI BRAIN WITHOUT CONTRAST Multi-sequence, multi-planar MRI of the brain was performed without intravenous contrast. COMPARISON: None FINDINGS: Brain Parenchyma: There is mild T2/FLAIR hyperintensity in the periventricular white matter which is nonspecific and can be seen in the setting of chronic small vessel disease. There is also T2/FLAIR hyperintense signal in the dorsal aman (5:8), also likely related to chronic small vessel disease. No evidence of acute infarct, mass lesion, or hemorrhage. Ventricular System and Extra-Axial Spaces: Normal. No evidence of midline shift or hydrocephalus. Extracranial Structures: Arterial flow voids in the skull base are present. Procedure Note Elliot Marrero MD - 10/26/2022 MRI BRAIN WITHOUT CONTRAST TECHNIQUE: MRI BRAIN WITHOUT CONTRAST Multi-sequence, multi-planar MRI of the brain was performed withoutintravenous contrast. COMPARISON: None FINDINGS: Brain Parenchyma: There is mild T2/FLAIR hyperintensity in theperiventricular white matter which is nonspecific and can be seen in thesetting of chronic small vessel disease. There is also T2/FLAIRhyperintense signal in the dorsal aman (5:8), also likely related tochronic small vessel disease. No evidence of acute infarct, mass lesion,or hemorrhage. Ventricular System and Extra-Axial Spaces: Normal. No evidence of midlineshift or hydrocephalus. Extracranial Structures: Arterial flow voids in the skull base arepresent. IMPRESSION: No clear intracranial cause for the reported symptoms identified. Ric Teresa MD IMG MR HEAD/NEC K documented in this encounter Visit Diagnoses Diagnosis Weight loss- Primary Loss of weight History of smoking Personal history of tobacco use, presenting hazards to health Frequent falls Tremors of nervous system Weight loss Loss of weight Frequent falls Tremors of nervous system documented in this encounter Care Teams Latex Ribbon Machine Operator Relationship Specialty Start Date End Date Ric Teresa MD [address] [place] [phone] PCP - General Internal Medicine 10/05/21 documented as of this encounter Additional Source Comments The information contained in this document represents components of the legal health record. It is not the complete legal health record.[facility]
--- OUTSIDE RECORDS SUMMARY | 2025-01-16 08:12 | XMS_ITS | Patient Health Record ---
Author Organization [facility] Address [address] [place] [address] Care Team Providers Care Phlebotomist Supervisor/Instructor Name Role Phone Ric Teresa MD Primary Care Provider Lance Almonte Jr [phone] Results Component Value Reference Range Notes Glucose, Whole Blood Reviewed date:12/20/2024 03:30:23 PM Interpretation: Performing Lab:[facility], [address] [place] [phone] Notes/Report: Glucose, Whole Blood 119 60-115 mg/dL METER # : [id number] Pathology Reviewed date:12/26/2024 09:17:05 PM Interpretation: Performing Lab:[facility], [address] [place] [phone] Notes/Report: ---- Name: Richard Mcdonald Age/Sex: 69/F : 1955 Unit#: [id number] Attend Dr: Lance Shields MD Re12/24/24 Status : [facility] Location: [facility] Disch: ---- SPEC : [id number] RECD: 12/24/24 STATUS: LOWELL PAT NUM: [id number] SARITHA: 12/24/[address] [facility] [address]: Lance Shields MD ENTERED: 12/24/24 53 SP TYPE: Surgical OTHR DR: Ric Teresa MD ORDERED: HE Stain/3, Gross Micro L4/2, IHC, H. pylori Diagnosis A. Gastric antrum, biopsy: Gastric antral mucosa with reactive changes and focal minimal chronic inac tive inflammation; negative for H. pylori, intestinal metaplasia and dysplasia. B. Esophagus, mid, biopsy: Squamous mucosa with no specific change; no columnar mucosa present. Clinical History Pre-Op Dx: Dysphagia , unspecified Post-Op Dx: Dysphagia Microscopic Description Microscopic sections reviewed. Immunostain for H.pylori on A is negative. Control stains appropriately. Material Received A. Antral bx's B. Bx's mid esophagus Gross Description Received in two parts Part A: Received in formalin labeled ?antral bx's? are 2 schwartz irregular tissue fragments measuring 0.15 and 0 .25 cm, submitted in toto in a cassette labeled A. Part B: Received in formalin labeled ?bx's mid esophagus? are 2 handley-schwartz irregular tissue fragments each measu ring 0.25 cm, submitted in toto in a cassette labeled B. CEDS Special studies orde red and performed: Immunostain for H. pylori on A1. Copies To: Lance Shields MD [facility] [address] [place] [address] CONTINUED ON NEXT PAGE ---- Name: Richard Mcdonald Age/Sex: 69/F : 1955 Unit#: [id number] Attend Dr: Lance Shields MD Re12/24/24 Status : [facility] Location: [facility] Disch: ---- SPEC : [id number] RECD: 12/24/24 STATUS: LOWELL PAT NUM: [id number] SARITHA: 12/24/[address] [facility] [address]: Lance Shields MD ENTERED: 12/24/24 53 SP TYPE: Surgical OTHR DR: Ric Teresa MD ORDERED: HE Stain/3, Gross Micro L4/2, IHC, H. pylori Copies To: (Continued) Ric Teresa MD [address] [place] [phone] ---- Signed (signature on file) Margaret Cotton 12/26/24 1642 ---- END OF REPORT Reason For Referral No Information Medications Medication SIG (Take, Route, Frequency, Duration) Notes Start Date End Date Status metFORMIN HCl 500 MG Oral for 90 Active Zolpidem Tartrate 5 MG TAKE 1 TABLET BY MOUTH DAILY AT BEDTIME NEEDED FOR SLEEP Oral for 30 Active rOPINIRole HCl 1 MG TAKE 1 TABLET BY MAGUE TH THREE TIMES DAILY Oral for 90 Active Mirtazapine 15 MG TAKE 1 TABLET BY MAGUE TH DAILY AT BEDTIME Oral for 30 Active hydrOXYzine Pamoate 25 MG Oral for 30 Active Vitamin D3 50 MCG (1999 UT) TAKE 1 CAPSU LE BY MOUTH EVERY DAY Oral for 90 Active Metoprolol Succinate ER 25 MG Oral for 90 Active clonazePAM 2 MG Oral for 30 Ac tive Rosuvastatin Calcium 10 MG Oral for 90 Active Famotidine 40 MG Oral for 90 A ctive Ventolin HFA 108 (90 Base) MCG/ACT INHALE 1 PUFF BY MOUTH EVERY 4 HOURS NEEDED Inhalation for 33 Active Montelukast Sodium 10 MG Oral for 90 Active Pregabalin 150 MG TAKE 1 CAPSULE BY MO UTH TWICE DAILY Oral for 30 Active Glimepiride 2 MG Oral for 90 A ctive Cyclobenzaprine HCl 10 MG TAKE 1 TABLET BY MOUTH THREE TIMES DAILY NEEDED Oral for 10 Active Levothyroxine Sodium 100 MCG Oral for 90 Active Magnesium Oxide -Mg Supplement 400 (240 Mg) MG TAKE 1 TABLET BY MOUTH TWICE DAILY NEEDED Oral for 90 Active Varenicline Tartrate 1 MG Oral for 90 Active Furosemide 20 MG TAKE 1 TABLET BY MAGUE TH TWICE DAILY Oral for 90 Active DULoxetine HCl 60 MG Oral for 90 Active Immunizations Vaccine Route Administration Date Status Comme nts Influenza Unknown 07/16/2024 Administered Social History Tobacco Use: Social History Observation Description Date Details (start date - stop date) Former Smoker NA - NA Tobacco Use/Smoking Question Answer Notes Patient is [...] Never (0 point) Points 1 Interpretation Negative Problems Problem Type SNOMED Code ICD Code Onset Dates Problem Status W/U Status Risk Notes Problem 68746500 Other dysphagia (R13.19) Active confirmed Problem Dysphagia (70518901) Dysphagia (R13.10) Active confirmed Problem 215571288 Abnormal UGI ser ies (R93.3) Active confirmed Problem 711051225 Gastroesophageal reflux disease, unspecified whether esophagitis present (K21.9) Active confirmed Vital Signs Temperature 97.8 degrees Fahrenheit 12/02/2024 Blood pressure diastolic 00 mm Hg 12/02/2024 Height 5 ft 8 in in 12/02/2024 Blood pressure systolic 000 mm Hg 12/02/2024 Weight 145 lbs 12/02/2024 BMI 22.04 kg/m2 12/02/2024 Encounters Encounter Location Date Provider Diagnosis [facility] [address] [place] [id number] 12/20/2024 Lance Shields Jr Abnormal UGI series R93.3 and Dysphagia R13.10 [facility] [address] [place] [id number] 12/24/2024 Lance Shields Jr Dysphagia R13.10 and Abnormal UGI series R93.3 [facility] [address] [place] [phone] 12/02/2024 Lance Shields Jr Other dysphagia R13.19 and Gastroesophageal reflux disease, unspecified whether esophagitis present K21.9 [facility] [address] [place] [address] Drive [address] [place] [phone] 12/11/2024 Lance Shields Jr Abnormal UGI series R93.3 [facility] [address] [place] [phone] 12/25/2024 Lance Shields Jr Assessments Encounter Date Diagnosis (ICD Code) Assessment Notes Treatment Notes Treatment Clinical Notes Section Notes 12/20/2024 Dysphagia (ICD-10 - R13.10) 12/20/2024 Abnormal UGI series (ICD-10 - R93.3) 12/24/2024 Dysphagia (ICD-10 - R13.10) 12/24/2024 Abnormal UGI series (ICD-10 - R93.3) 12/02/2024 Other dysphagia (ICD-10 - R13.19) We discussed her symptoms today. We recommended further evaluation with an upper GI series, after which she will likely need endoscopy for further evaluation. For her reflux, we have recommended continuing her present regimen which seems to be controlling her symptoms well. We discussed that it is not clear she will benefit from balloon dilation today and she appears to understand this. 12/02/2024 Gastroesophageal reflux disease, unspecified whether esophagitis present (ICD-10 - K21.9) Gastroesophageal reflux disease material was printed We discussed her symptoms today. We recommended further evaluation with an upper GI series, after which she will likely need endoscopy for further evaluation. For her reflux, we have recommended continuing her present regimen which seems to be controlling her symptoms well. We discussed that it is not clear she will benefit from balloon dilation today and she appears to understand this. 12/11/2024 Abnormal UGI series (ICD-10 - R93.3) Plan Of Treatment Pending Test Test Name Order Date XR GI SERIES 12/02/2024 Future Test Test Name Order Date UPPER GI ENDOSCOPY BALLOOON DILATION OF ESOPH 12/11/2024 Insurance Providers Payer Name Payer Address Payer Phone Subscriber Number Group Number Insured Name Patient Relationship to Insured Coverage Start Date Coverage End Date MEDICARE OF [place] [address] [place] [id number] SAMPSON MCDONALD Self - patient is the insured MEDICAID OF [facility] [address] [place] [address] [id number] SAMPSON MCDONALD Self - patient is the insured Medical (General) History Medical History History ICD Code Hyperlipidemia Diabetes mellitus type 2 with neuropathy Ulcerative colitis with total colectomy and ileostomy Osteoarthritis Anxiety/depression Hypothyroidism Surgical History Surgery Date(Month/Year) Foot surgery/partial toe amputation Hiatal hernia repair 08/20 Colectomy/ileostomy Right shoulder surgery
--- OUTSIDE RECORDS SUMMARY | 2025-01-16 08:13 | XMS_ITS ---
Author Organization [facility] Address [address] [place] [phone] Care Team Providers Care Food Demonstrator Name Role Phone Ric Teresa MD Primary Care Provider Lance Almonte Jr REASON FOR VISIT waiting on pt call back Encounters Encounter Location Date Provider Diagnosis [facility] [address] [place] [address] 12/25/2024 Lance Shields Jr Plan Of Treatment No Information Progress Notes * DONNA MCDONALDGABEB:[birth year] (69 yo F)Acc No.[id number]:12/25/2024 Patient:?SAMPSON MCDONALD :1955???Age:69 Y???Sex:Female Address:[address] [place] [address], [id number] * true * Date:? Generated for Damien hudson/Melissa/eTransmitting on:?01/16/2025 08:12 AM EDT
--- OUTSIDE RECORDS SUMMARY | 2025-01-16 08:13 | XMS_ITS ---
Author Organization [facility] Address [address] [place] [address] Care Team Providers Care Glue Mixer Name Role Phone Ric Teresa Primary Care Provider [phone] REASON FOR VISIT Message Encounters Encounter Location Date Provider Diagnosis [facility] [address] [phone] 01/09/20 Ric Teresa PLAN OF TREATMENT Next Appt Details Provider Name:Ric castano, 02/11/2025 11:00:00 AM, [address] [place], [phone],
== END ==
LOC: HO.NUCMED 08:07
PROVIDERS: PCP Internal Medicine; Visit Provider Internal Medicine Gastroenterology
DX: R13.10 Dysphagia, unspecified (principal)
CPT/HCPCS: 78264; A9541

== ENCOUNTER → 2025-01-16 08:30 | Outpatient (BNV) | payer MEDICARE, MEDICAID, SELFPAY | PROVIDERS: PCP Internal Medicine; Visit Provider Radiology Diagnostic Radiology | DX: R13.10 Dysphagia, unspecified (principal) | CPT/HCPCS: 78264 ==